=== PATIENT | male | born 1930 | race Caucasian/White ===

== ENCOUNTER 2016-05-10 10:48 | Observation (INO) | payer MEDICARE, OTHER ==
[2016-05-10] MEDS ORDERED: Aspirin Low Dose CHEW TAB* 81 MG PO ONE (11:08)
[2016-05-10] MEDS ORDERED: NS 0.9% 1000 ML* 1,000 ML IV ONE (11:59)
[2016-05-10 12:45] LABS: Hematocrit 40 % (42-52); Hemoglobin 12.8 g/dl (14.0-18.0); Mean Corpuscular HGB Conc 32 g/dl (31-36); Mean Corpuscular Hemoglobin 29 pg (27-31); Mean Corpuscular Volume 89 fL (80-94); Mean Platelet Volume 10 um3 (7.4-10.4); Red Cell Distribution Width 15 % (10.5-15); White Blood Count 8.4 10^3/ul (3.5-10.8)
[2016-05-10 13:06] LABS: Albumin 3.3 g/dL (3.2-5.2); BUN/Creatinine Ratio 40.2 (8-20); Calcium 8.6 mg/dL (8.6-10.3); EGFR African American 72.3 (>60); EGFR Non-African American 56.2 (>60); Globulin 2.5 g/dL (2-4); Potassium 4.5 mmol/L (3.5-5.0); Total Bilirubin 0.8 mg/dL (0.2-1.0); Total Protein 5.8 g/dL (6.4-8.9)
[2016-05-10 13:12] LABS: Troponin I 0.04 ng/mL (<0.04)
[2016-05-10] MEDS ORDERED: Nortriptyline CAP* 10 MG PO PRN (18:47)
[2016-05-10] MEDS ORDERED: Docusate CAP* 100 MG PO PRN (18:47)
[2016-05-10] MEDS ORDERED: Omeprazole CAP* 20 MG PO PRN (18:47)
[2016-05-10] MEDS ORDERED: Polyethylene Glycol 3350* 17 GM PACKET PO PRN (18:47)
--- NOTE | 2016-05-10 18:55 | CONS ---
CONSULTATION NOTE: DATE OF CONSULT: 05/10/16 SERVICE REQUESTING CONSULTATION: Emergency room, Dr. Carlos Alberto Zhu. REASON FOR CONSULTATION: Lower extremity swelling. SOURCE OF INFORMATION: History obtained from interview with the patient, review of past medical records, discussion with the patient's primary care provider, Dr. Mejia. PRIMARY CARE PROVIDER: Dr. Mejia. WHANAU SUPPORT WORKER: Dr. Flower. HISTORY OF PRESENT ILLNESS: This is an 85-year-old man, history of severe systolic heart failure, [place] [facility] [place] presenting with shortness of breath, found with newly depressed LVEF and EF estimated at 20% to 25%, underwent left heart catheterization without intervention, now notable severe aortic stenosis. He was seen yesterday by his primary care provider for lower extremity swelling, who increased his Lasix dose , recommended leg elevation as well as decreased water intake. Today, the patient indicated to his that he had had decreased urine output. Of note, the patient has lxqu-rx-hcukhgbp dementia, was unable to indicate at this point that he did that nor when the last time he urinated was. For this reason of decreased urination, he presented to the emergency room. He had a Schaffer catheter placed, although there was no documentation of how much urine resulted after Schaffer catheter was placed nor postvoid residual. He denies any recent change in shortness of breath from his chronic baseline shortness of breath. No decline in exercise tolerance. No cough. No orthopnea or PND, palpitations or chest pain. He has had no recent URI symptoms. indicates that he does adhere to a low-salt diet, but has dry mouth which he drinks a lot of water for. He has been recommended to drink ice chips; however, is not adherent. Additionally, he has been recommended to keep his legs up which he is similarly nonadherent to doing. Recently, he has had no notable symptoms, fevers, chills, or night sweats. When seen by this author, he had no complaints. PAST MEDICAL HISTORY: Includes: 1. Multivessel coronary artery bypass, 2013. Last cardiac catheterization in February without intervention. Known left bundle branch block. 2. Hdmw-ik-qmfrlmdk dementia. 3. Hypertension. 4. Carpal tunnel syndrome. HOME MEDICATIONS: Include: 1. Haldol 1 mg at bedtime as needed. 2. Vitamin B12 at 100 mg daily. 3. Vitamin C 500 mg daily. 4. Docusate 200 mg as needed. 5. Lasix 50 mg daily. 6. Morphine 15 mg at bedtime as needed. 7. MiraLAX 17 g daily as needed. 8. Multivitamin 1 tab daily. 9. Nexium 40 mg daily. 10. Cholecalciferol 1000 mg daily. 11. Aspirin 81 mg daily. 12. [place] 10/325 two tabs every 4 hours as needed. 13. Nortriptyline 30 mg at bedtime. 14. Metoprolol succinate XL 25 mg daily. 15. Lisinopril 2.5 mg daily. 16. Atorvastatin 10 mg in the evening. ALLERGIES: No known drug allergies. FAMILY HISTORY: No history of CAD or lung disease. SOCIAL HISTORY: Former smoker, quit in 1990. Has smoked 30 years, 2 to 3 packs per day. Lives with his . REVIEW OF SYSTEMS: Reportedly decreased urine output this morning for unknown duration. PHYSICAL EXAM: Vitals: When seen by this author, 122/88, heart rate 94, respiratory rate 16, 100% on room air, T-max in the emergency room is 98.2. Lying flat in bed, interactive, talks in full sentences, in no apparent distress. Oropharynx is clear. Moist mucous membranes. Sclerae are anicteric. Has elevated JVD. Has no cervical or supraclavicular lymphadenopathy. Has a regular rate and rhythm. No murmurs, rubs, or gallops. His lungs have decreased breath sounds in bases. Otherwise, clear throughout. His abdomen is soft, nontender, nondistended. Extremities are warm and well perfused. He has 1 + to 2+ lower extremity pitting edema to the knees. He is alert and oriented to name and location, but not to year. Conversant, sometimes combative, appeased by his . DIAGNOSTIC STUDIES/LAB DATA: Data reviewed. BUN 49, creatinine 1.22, lowest since checked on March 10. Troponin I of 0.04. BNP 3545. White blood cell count 8.4, hemoglobin 12.8. Data reviewed. EKG: [place], left bundle branch block. ASSESSMENT AND PLAN: This is an 85-year-old man presenting to the hospital with acute urinary retention. Urinalysis is still pending. However, I do not think its findings should warrant further hospital stay. Schaffer in place. He can return home. I have discussed with our care coordinators who are assisting in establishing assistance at home VNS for managing Schaffer catheter. He is to make no changes to his Lasix for care of his lower extremity edema. I discussed the care with Dr. Mejia who indicated adjusting his Lasix yesterday. I discussed further with the patient and his elevating legs at home and wrapping them, decreasing fluid intake. As far as his urinary retention, I do recommend starting Flomax 0.4 mg daily. Will follow up with Urology in 4 to 6 weeks. This again was discussed with Dr. Mejia and Dr. Zhu prior to his discharge. No other changes to his medications besides the addition of Flomax. The patient is clearly not in acute decompensated heart failure exacerbation. He is requiring no oxygen lying flat. No changes in his chronic shortness of breath. No other evidence of acute coronary syndrome or ischemic changes. I think largely his advancing dementia drove this hospital stay, with unknown duration of urinary retention and unknown amount of urinary retention after placement of Schaffer with inadequate documentation. The patient will be given a leg bag and Schaffer care teaching via ED staff prior to discharge. This was discussed with ED covering nurse, Virgen Sidhu. We additionally discussed wrapping legs if elevation was too difficult to perform at home. Results of this consultation was discussed with the patient, Dr. Zhu as well as Dr. Mejia. CC: Dr. Mejia; Dr. Flower * [id number]/[facility] #: [id number] [facility]
[2016-05-10] MEDS ORDERED: Furosemide IV* 10 MG/ML 2 ML VIAL (20 MG) IV SLOW PU ONE (19:14)
[2016-05-10 19:40] LABS: Urine Bacteria Absent (Absent); Urine Bilirubin Negative (Negative); Urine Glucose Negative (Negative); Urine Nitrite Negative (Negative)
[2016-05-10] MEDS: Heparin VIAL(*) 5000 UNITS/ML VIAL (FIVE THOUSAND) SUBCUT SCH (20:44)
--- NOTE | 2016-05-10 20:51 | HP ---
HISTORY AND PHYSICAL: ADDENDUM: DATE OF ADDENDUM: 05/10/16 The patient was initially seen in consultation by Dr. Louis Higuera in the emergency room. It was felt that the patient could be managed as an outpatient for the issues that he presented to the ER for. However, the patient's family ultimately demanded admission for management of CHF. I presented to the emergency room and discussed with the patient, his , and stepson about his current complaints. The patient presented to the emergency room with complaints of the inability to urinate. The patient himself currently is unable to remember this. A Schaffer catheter was placed in the ER. I had the opportunity to speak to the nurse that placed the Schaffer catheter. She states that 15 mL of urine immediately drained from the bladder, but no more. The patient also began to complain of swelling of his legs, scrotum, and penis. The patient again was seen in consultation by Dr. Louis Higuera and it was felt that his lower extremity edema could be managed as an outpatient. Additionally, it was felt that he likely had urinary retention; however, Dr. Higuera was unaware of the amount of urine that was emptied from the bladder at the placement of the Schaffer catheter. At this time, it appears the patient was not in urinary retention. At this point, I do feel that the patient could benefit from an observation stay. He has significant lower extremity edema. His scrotum and penis are swollen; however, not traumatically so. The patient is agreeable to being admitted to the hospital for further evaluation and management of his lower extremity edema. PLAN: 1. Systolic congestive heart failure - subacute decompensation. The patient's family gives me the history that his legs began to swell much worse approximately 2 weeks ago. This seems to be a subacute decompensation. The patient was seen by his primary care provider on the day prior to admission at which time, his Lasix dose was increased. At this point, I will hold his oral Lasix and place him on Lasix 40 mg IV x1 now followed by 40 mg IV b.i.d. I suspect with this, the patient will have dramatic response to the diuretic. His lower extremity swelling and scrotal swelling will need to be monitored. I have ordered daily weights as well. The patient will otherwise be maintained on his usual dose of lisinopril and metoprolol XL. The patient was seen as an outpatient by Dr. Flower in March 2016. At that time, he recommended getting a followup echocardiogram in early June 2016. I have ordered an echocardiogram if he remains in the hospital until Friday. However, again I feel that he just needs a jump start with IV Lasix and can manage as an outpatient. I doubt that the echocardiogram will be performed this hospitalization. 2. Inability to urinate. At the time the Schaffer catheter was placed, only 15 mL of urine was emptied from the bladder. It is clear that he was not in urinary retention. At this point, I will leave the Schaffer catheter in place as I am going to give him IV Lasix and it is likely safer to have the Schaffer in place then the patient up all night long urinating. I recommend that tomorrow morning the patient have the Schaffer catheter removed and a voiding trial attempted. 3. Coronary artery disease. The patient at this point has a very mildly elevated troponin of 0.04. I will get one more followup troponin to ensure that this is not sign of an acute coronary syndrome; however, his troponin has been in this range in February 2016. 4. Hypertension. At this point, the patient's blood pressure is stable in the 130s to 140s systolically. There were concerns of hypotension earlier this emergency room visit and he received 1 L of normal saline. It is unclear if these readings are accurate or false. For now, I am going to continue the patient on his usual doses of metoprolol and lisinopril. 5. Chronic pain. The patient will be maintained on his usual doses of nortriptyline and morphine. I will also add [place] 5/325 two tabs p.o. q.4 hours p.r.n. pain. This is a slightly reduced dose from home; however, at this point, we will just monitor to see his response to a lower dose of [place]. 6. Ujui-eq-cltbuxrs dementia. The patient has been somewhat agitated during the course of my evaluation. He has Haldol 1 mg at bedtime ordered as needed for agitation and this will be continued. 7. DVT prophylaxis. According to the Adult Thrombosis Prophylaxis Risk Factor Assessment Guide, the patient has a total risk factor score of 5 making him high risk. Heparin 5000 unit subcutaneous q.8 hours has been ordered for DVT prophylaxis. 8. Code status is full. The patient indicates that his Lisa is his healthcare proxy. TIME SPENT: 35 minutes were spent on the addendum history and physical. Please see the complete history and physical consultation report by Dr. Louis Higuera earlier on 05/10/16 for further HPI, past medical history, allergies, medications, family history, social history, review of systems and exam. [id number]/[facility] #: [id number] MTDD
[2016-05-10] MEDS: Haloperidol TAB* 1 MG PO PRN (21:41)
[2016-05-10] MEDS: HYDROcodone/ACETAMIN 5-325 MG* 1 TAB PO PRN (21:41)
[2016-05-11] MEDS: Morphine ORAL.SOLN 10 mg* 2 MG/ML UDC 5 ml PO PRN (01:07)
[2016-05-11] MEDS: Heparin VIAL(*) 5000 UNITS/ML VIAL (FIVE THOUSAND) SUBCUT SCH ×3 (05:35→19:59)
[2016-05-11 06:03] LABS: BUN/Creatinine Ratio 36.3 (8-20); Calcium 9.1 mg/dL (8.6-10.3); EGFR African American 70.9 (>60); EGFR Non-African American 55.1 (>60); Magnesium 2.1 mg/dL (1.9-2.7); Potassium 4.5 mmol/L (3.5-5.0)
[2016-05-11] MEDS ORDERED: Cyanocobalamin TAB* 500 MCG PO SCH (09:00)
[2016-05-11] MEDS: Cholecalciferol TAB* 1000 UNITS PO SCH (09:18)
[2016-05-11] MEDS: Furosemide IV* 10 MG/ML VIAL (40 MG) IV SLOW PU SCH ×2 (09:18→17:24)
[2016-05-11] MEDS: HYDROcodone/ACETAMIN 5-325 MG* 1 TAB PO PRN ×2 (09:19→20:15)
[2016-05-11] MEDS: Aspirin EC Low Dose* 81 MG TAB.EC PO SCH (09:19)
[2016-05-11] MEDS: Multivitamins/Minerals TAB PO SCH (09:19)
[2016-05-11] MEDS: Ascorbic Acid TAB* 500 MG PO SCH (09:22)
[2016-05-11] MEDS: Lisinopril TAB* 5 MG PO SCH (10:16)
[2016-05-11] MEDS: Metoprolol Succinate XL TAB* 25 MG PO SCH (10:16)
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
[2016-05-11] MEDS ORDERED: Nortriptyline CAP* 10 MG PO PRN ×2 (12:00→12:14)
[2016-05-11] MEDS ORDERED: Iodixanol* (CONTRAST) 320 MG/ML 100 ML SDV IV ONE (14:53)
[2016-05-11 15:14] LABS: FIO2 15
[2016-05-11 15:17] LABS: PCO2 Arterial 22 mmHg (35-45)
--- NOTE | 2016-05-11 15:19 | PN ---
Progress Note - Progress Note Note: Event Note: Patient had complaint of chest pain, relieved by applying oxygen. EKG and CT chest ordered. The patient became more dyspneic, O2 sat reading in 65% range. Patient sitting on edge of bed, verbal, confused (at baseline.) No cyanosis. BP 148/65 range, HR 90. Lungs: no rales/wheezes Heart; RRR, no murmur EKG: bigeminy, inferior T-wave inversions unchanged from admission. ABG and BMP/CBC/Trop ordered. Doubt O2sat accurate, Able to lie flat, will have CT chest. Discussed w/ daughter and . May need BiPAP. Patient is full code, confirmed w/ and daughter.
[2016-05-11 15:53] LABS: Hematocrit 45 % (42-52); Hemoglobin 14.5 g/dl (14.0-18.0); Mean Corpuscular HGB Conc 32 g/dl (31-36); Mean Corpuscular Hemoglobin 29 pg (27-31); Mean Corpuscular Volume 90 fL (80-94); Mean Platelet Volume 10 um3 (7.4-10.4); Red Blood Count 5.03 10^6/ul (4.0-5.4); Red Cell Distribution Width 15 % (10.5-15); White Blood Count 7.3 10^3/ul (3.5-10.8)
[2016-05-11 16:22] LABS: Troponin I 0.06 ng/mL (<0.04)
[2016-05-11 16:38] LABS: BUN/Creatinine Ratio 35.2 (8-20); Calcium 9.1 mg/dL (8.6-10.3); EGFR African American 60.6 (>60); EGFR Non-African American 47.2 (>60); Potassium 4.8 mmol/L (3.5-5.0)
[2016-05-11] MEDS: Donepezil TAB* 5 MG PO SCH (17:24)
[2016-05-11] MEDS: Atorvastatin* 10 MG TAB PO SCH (17:24)
[2016-05-11] MEDS: Tamsulosin CAP* 0.4 MG PO SCH (19:59)
[2016-05-11] MEDS: Haloperidol TAB* 1 MG PO PRN (19:59)
[2016-05-11] MEDS ORDERED: Heparin DRIP 25,000 UNITS(*) 25,000 UNITS/500 ML BAG IVPB SCH (23:00)
[2016-05-11] MEDS ORDERED: Heparin VIAL(*) 5000 UNITS/ML VIAL (FIVE THOUSAND) IV PRN (23:51)
[2016-05-12] MEDS: Morphine ORAL.SOLN 10 mg* 2 MG/ML UDC 5 ml PO PRN (00:22)
--- NOTE | 2016-05-12 01:33 | PN ---
Progress Note - Progress Note Note: Nursing was able to place an IV for his CTA chest with difficulty. Unfortunately , it infiltrated during the contrast injection and a new IV site was unable to be obtained. As the CTA chest was being done out of concern for PE, will initiate treatment w/ enoxaparin 80mg SQ BID until better IV access can be obtained and CTA performed.
[2016-05-12] MEDS: Enoxaparin(*) 80 MG/0.8 ML SYR SUBCUT SCH ×2 (02:55→14:05)
[2016-05-12] MEDS: Cholecalciferol TAB* 1000 UNITS PO SCH (07:49)
[2016-05-12] MEDS: Furosemide IV* 10 MG/ML VIAL (40 MG) IV SLOW PU SCH ×2 (07:49→13:54)
[2016-05-12] MEDS: HYDROcodone/ACETAMIN 5-325 MG* 1 TAB PO PRN ×3 (07:50→22:40)
[2016-05-12] MEDS: Aspirin EC Low Dose* 81 MG TAB.EC PO SCH (07:50)
[2016-05-12] MEDS: Metoprolol Succinate XL TAB* 25 MG PO SCH (07:51)
[2016-05-12] MEDS: Ascorbic Acid TAB* 500 MG PO SCH (07:51)
[2016-05-12] MEDS: Multivitamins/Minerals TAB PO SCH (07:51)
[2016-05-12] MEDS: Lisinopril TAB* 5 MG PO SCH (07:51)
[2016-05-12] MEDS: Furosemide TAB* 20 MG PO SCH (12:52)
--- NOTE | 2016-05-12 16:23 | ED ---
Donovan Nicholas Matthew, scribed for Carlos Alberto Zhu MD on 05/10/16 at 1221 . GI/ HPI - HPI Summary HPI Summary: An 85 y/o male presents to the ED unable to urinate since an unknown time. Associated symptoms include penile and scrotal swelling, pedal edema, and a distended abdomen. The patient denies dizziness, lightheadedness, and chest pain. The patient has a Hx of CHF, dementia, confusion, and HTN. Per the patient 's , he was seen by his PCP yesterday for pedal edema. Today, Maida wanted the patient to be seen in the ED. The patient did not take his Lasixs today. - History of Current Complaint Chief Complaint: EDUrogenitalProblems Time Seen by Provider: 05/10/16 11:08 Stated Complaint: UNABLE TO URINATE Hx Obtained From: Patient Onset/Duration: Atraumatic, Still Present Timing: Constant Current Severity: None Pain Intensity: 0 Additional Locations for Males: Penis, Scrotum Associated Signs and Symptoms: Positive: Other: - penile and scrotal swelling; distended abdomen; pedal edema. Negative: Dizziness, Lightheadedness, Chest Pain - Additional Pertinent History Primary Care Physician: [id number] - Allergy/Home Medications Allergies/Adverse Reactions: Allergies Allergy/AdvReac Type Severity Reaction Status Date / Time Spironolactone Allergy Unknown Verified 05/10/16 10:58 Reaction Details Home Medications: Home Medications Ascorbic Acid TAB* [Vitamin C TAB*] 500 mg PO DAILY 05/10/16 [History Confirmed 05/10/16] Cyanocobalamin TAB* [Vitamin B12 TAB*] 100 mcg PO DAILY 05/10/16 [History Confirmed 05/10/16] Docusate CAP* [Colace Cap*] 200 mg PO DAILY PRN 05/10/16 [History Confirmed ] Furosemide TAB* [Lasix TAB*] 60 mg PO QAM PRN 05/10/16 [History Confirmed ] Haloperidol TAB* [Haldol TAB*] 1 mg PO BEDTIME PRN 05/10/16 [History Confirmed 05/10/16] PMH/Surg Hx/FS Hx/Imm Hx Endocrine/Hematology History: Reports: Hx Anticoagulant Therapy - Aspirin, Other Endocrine/Hematological Disorders - BENIGN PROSTATE HYPERTROPHY, DISLIPIDEMIA Denies: Hx Bone Marrow Disease, Hx Diabetes, Hx Sickle Cell Disease, Hx Thyroid Disease, Hx Anemia Cardiovascular History: Reports: Hx Congestive Heart Failure, Hx Hypercholesterolemia, Hx Hypertension, Other Cardiovascular Problems/Disorders - SICK SINUS SYNDROME, BRADYCARDIA Denies: Hx Coronary Artery Disease, Hx Deep Vein Thrombosis, Hx Myocardial Infarction, Hx Pacemaker/ICD, Hx Peripheral Vascular Disease, Hx Rheumatic Fever Respiratory History: Reports: Hx Pneumonia Denies: Hx Asthma, Hx Chronic Obstructive Pulmonary Disease (COPD), Hx Lung Cancer, Hx Pulmonary Embolism, Hx Sleep Apnea GI History: Reports: Hx Gastroesophageal Reflux Disease, Hx Hiatal Hernia, Hx Jaundice - A YOUNG MAN, Hx Ulcer - X 1 IN THE PAST, Other GI Disorders - hiatal hernia, acid reflux Denies: Hx Cirrhosis, Hx Gall Bladder Disease, Hx Gastrointestinal Bleed, Hx Irritable Bowel, Hx Urosepsis History: Reports: Hx Kidney Infection - NOT RECENTLY, Other Problems/ Disorders - BILATERAL INGUINAL HERNIA Denies: Hx Dialysis, Hx Kidney Stones - DR. ZAMORANO RULED OUT, Hx Renal Disease Musculoskeletal History: Reports: Hx Back Problems, Hx Bursitis - ARMS, SHOULDERS, Hx Orthopedic Injury, Hx Tendonitis, Other Musculoskeletal History - LOWER BACK SURGERY X 8, CHRONIC PAIN SYNDROME, CARPAL TUNNEL, OSTEOARTHRITI Denies: Hx Arthritis, Hx Rheumatoid Arthritis, Hx Osteoporosis Sensory History: Reports: Hx Cataracts, Hx Contacts or Glasses - READING GLASSES , Hx Hearing Aid - BILATERAL EARS Opthamlomology History: Reports: Hx Cataracts, Hx Contacts or Glasses - READING GLASSES Neurological History: Reports: Other Neuro Impairments/Disorders - ALCOHOLISM Denies: Hx Dementia, Hx Headaches, Hx Migraine, Hx Nerve Disease, Hx Seizures , Hx Transient Ischemic Attacks (TIA) Psychiatric History: Reports: Hx Anxiety, Hx Depression Denies: Hx Panic Disorder, Hx Schizophrenia, Hx Bipolar Disorder - Cancer History Cancer Type, Location and Year: MELANOMA Hx Hematologic Symptoms: No Hx Chemotherapy: No Hx Radiation Therapy: No - Surgical History Surgery Procedure, Year, and Place: Ate age 30 fell off of a telephone pole and landed standing up; three disks. Has had 8 surgeries on his back 45+yrs ago . Very painful; takes at least 12 hydrocodone 10/325 per day routinely to deal. cardiac cath february 2016. with the pain. x4 CABG ONE MONTH AGO. CATARACTS REMOVED FROM BOTH EYES. melanoma face and back dx 1 month ago. SINUS SURGERY X 2. TRIPLE BYPASS DEC 2013 Hx Anesthesia Reactions: No - Immunization History Date of Tetanus Vaccine: UNSURE Date of Influenza Vaccine: NONE Infectious Disease History: No Infectious Disease History: Reports: Hx Shingles - many years ago Denies: Hx Hepatitis - ?, Hx Human Immunodeficiency Virus (HIV), Traveled Outside the [place] in Last 30 Days - Family History Known Family History: Positive: Cardiac Disease, Hypertension - Social History Alcohol Use: None Substance Use Type: Reports: None Substance Use Comment - Amount & Last Used: PRESCRIBED VICODIN AND MORPHINE Smoking Status (MU): Former Smoker Type: Cigarettes Amount Used/How Often: 3 PPD Length of Time of Smoking/Using Tobacco: 35 YEARS Have You Smoked in the Last Year: No Review of Systems Constitutional: Negative Negative: Fever, Chills Eyes: Negative Negative: Erythema ENT: Negative Negative: Sore Throat Cardiovascular: Negative Negative: Chest Pain Respiratory: Negative Negative: Shortness Of Breath Gastrointestinal: Other - distended abdomen Negative: Abdominal Pain, Vomiting, Nausea Genitourinary: Negative Negative: dysuria, hematuria Positive: Edema - pedal edema, penile, and scrotal swelling. Negative: Myalgia Skin: Negative Negative: Rash Neurological: Negative Negative: Headache Psychological: Normal All Other Systems Reviewed And Are Negative: Yes Physical Exam Triage Information Reviewed: Yes Vital Signs On Initial Exam: Initial Vitals Temp Pulse Resp BP Pulse Ox 97.5 F 43 18 110/58 100 05/10/16 10:50 05/10/16 10:50 05/10/16 10:50 05/10/16 10:50 05/10/16 10:50 Vital Signs Reviewed: Yes Appearance: Positive: No Pain Distress Skin: Positive: Warm, Dry Head/Face: Positive: Other - Normocephalic; Atraumatic Eyes: Positive: Conjunctiva Clear Dental: Negative: Cervical Lymphadenopathy Neck: Positive: Supple, No Lymphadenopathy Respiratory/Lung Sounds: Positive: Breath Sounds Present, Other - Normal Effort. Negative: Rales, Rhonchi, Stridor, Tracheal Deviation, Wheezes Cardiovascular: Positive: RRR, Other - Heart sounds normal; Intact distal pulses ; The pedal pulses are 2+ and symmetric. Radial pulses are 2+ and symmetric.. Negative: Murmur Abdomen Description: Positive: Nontender, Soft, Other: - NO rebound. Negative: Distended, Guarding Musculoskeletal: Positive: Other - peripheral edema extending from the feet to groin including the scrotum; Minimal ascites Neurological: Positive: Alert, Oriented to Person Place, Time Diagnostics - Vital Signs Vital Signs Temp Pulse Resp BP Pulse Ox 05/10/16 10:50 97.5 F 43 18 110/58 100 - Laboratory Result Diagrams: 05/11/16 15:43 05/11/16 15:43 Lab Statement: Any lab studies that have been ordered have been reviewed, and results considered in the medical decision making process. - EKG 11:07 Cardiac Rate: NL - 99 bpm EKG Rhythm: Sinus Rhythm EKG Interpretation: No STEMI 16:25 Cardiac Rate: NL - 89 bpm EKG Rhythm: Sinus Rhythm Ectopy: None EKG Interpretation: NO STEMI Re-Evaluation - Re-Evaluation First Eval Re-Evaluation Time: 18:46 Change: Worse Comment: The patient is tachypneic and per the he's been c/o SOB. GIGU Course/Dx - Course Assessment/Plan: An 85 y/o male presents to the ED unable to urinate. The patient has peripheral edema extending from the feet to groin including the scrotum with minimal ascites. Labs were reviewed and show elevate troponin of 0.04 and BNP of 3454. EKG shows NSR at 99 bpm. Discussed the case with Dr. Higuera who said there was no admitting Dx to keep the patient. The then informed me she was uncomfortable taking care of the patient at home. Discussed the wifes concern with Dr. Higuera who setup visiting nurses to see the patient for catheter care. Upon re-evaluation the patient was tachypneic with SOB. Dr. Mills was consulted and will admit the patient. - Diagnoses Provider Diagnoses: Peripheral edema - Physician Notifications Discussed Care Of Patient With: Dr. Higuera (Hospitalist) at 12:20 -- Notified of patient's history and will admit the patient into his services. Dr. Higuera ( Hospitalist) at 15:31 -- Relayed the 's concern wt Dr. Higuera who will setup visting nurses to see the patient at home for catheter care. Dr. Mills ( Hospitalist) at 18:34 -- Notified of patient's history and will consult on the patient. Discharge - Discharge Plan Condition: Stable Disposition: ADMITTED TO [facility] The documentation as recorded by the scribeDonovan Matthew accurately reflects the service I personally performed and the decisions made by me, Carlos Alberto Zhu MD.
[2016-05-12] MEDS: Atorvastatin* 10 MG TAB PO SCH (17:30)
[2016-05-12] MEDS: Donepezil TAB* 5 MG PO SCH (17:30)
[2016-05-12] MEDS: Tamsulosin CAP* 0.4 MG PO SCH (20:44)
[2016-05-13] MEDS: Enoxaparin(*) 80 MG/0.8 ML SYR SUBCUT SCH (01:52)
[2016-05-13] MEDS: HYDROcodone/ACETAMIN 5-325 MG* 1 TAB PO PRN ×3 (03:07→12:38)
--- NOTE | 2016-05-13 03:09 | DS ---
DISCHARGE SUMMARY: DATE OF ADMISSION: 05/10/16 DATE OF DISCHARGE: 05/12/16 PRIMARY DIAGNOSIS: Decompensation of chronic systolic heart failure. SECONDARY DIAGNOSES: 1. Alzheimer's type dementia. 2. Coronary artery disease with coronary artery bypass graft, 2013. 3. Left bundle-branch block. 4. Hypertension. 5. Carpal tunnel syndrome. 6. Chronic back pain. 7. Ischemic cardiomyopathy. 8. 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 MEDICATIONS ON DISCHARGE: 1. Vitamin C 500 mg p.o. daily. 2. Aspirin 81 mg p.o. daily. 3. Atorvastatin 10 mg p.o. q.h.s. 4. Vitamin D 1000 units p.o. daily. 5. Vitamin B12 at 100 mcg p.o. daily. 6. Colace 200 mg p.o. daily. 7. Aricept 5 mg p.o. q.p.m. 8. Nexium 20 mg p.o. daily. 9. Furosemide 60 mg p.o. q.a.m. 10. Haldol 1 mg p.o. q.h.s. p.r.n. agitation. 11. Hydrocodone/acetaminophen 10/325 one to two tabs p.o. q.4 hours MDD 6 p.r.n. pain. 12. Lisinopril 2.5 mg p.o. daily. 13. Metoprolol XL 25 mg p.o. daily. 14. Morphine IR 50 mg p.o. at bedtime p.r.n. back pain. 15. Multivitamin 1 tab p.o. daily. 16. Nortriptyline 10 mg p.o. at q.h.s. 17. MiraLax 17 g packet p.o. daily p.r.n. constipation. 18. Flomax 0.5 mg p.o. q.p.m. HOSPITAL COURSE: The patient was admitted through the emergency department with progressive edema and dyspnea. The patient was admitted also to this hospital in February, at that time had ejection fraction in the 20% to 25% range and had a repeat cardiac catheterization at that time without any intervention. He also has aortic stenosis. A repeat echo was planned in a few months, but this was not completed during the stay. The patient had also voiding complaints and had a Schaffer catheter placed in the emergency department. He was diuresed with intravenous Lasix and had approximately 1 L of that output per day for 2 days with improvement in his dyspnea and a peripheral edema. The patient is planning to go home with indwelling Schaffer catheter and have a voiding trial with urologist within the next 2 weeks. Pertinent lab results during the hospital stay include creatinine of 1.22 on admission, up to 1.42 on discharge. His sodium was 132 on admission and 135 on discharge. Troponin was 0.04, up to 0.06. BNP was 3545. The white count was normal, hematocrit was 45%, platelets are 140. Urinalysis showed leukocyte esterase, white cells and red cells, but urine culture showed no growth. On the second day of observation admission, the patient had an acute episode of hypoxia and shortness of breath. He was assessed by a rapid response team and had a blood gas that showed hyperventilation. CT angiogram of the chest was attempted to rule out pulmonary embolism, but he had a poor IV access and the IV failed during the test leading to a nondiagnostic exam. The patient's dyspnea resolved spontaneously essentially after application of additional supplemental oxygen. Oxygen was then titrated off and he does not require home oxygen. DISPOSITION: To home where he has a visiting nurse. There were extensive discussions about usp placement made with the family due to his dementia and difficulty with his taking care of him. For now, family will stay with him and they are applying for Medicaid so that he could move to a usp potentially as an outpatient. For heart failure and aortic stenosis, the patient should follow up with Dr. Flower and have repeat echo as an outpatient. For his heart failure he should be doing daily weights and a low salt diet. He has been instructed to call Dr. Flower if his weight goes up 2 pounds above his baseline on his home scale. ACTIVITY: Should be as tolerated. The patient should see Urology for followup within 2 weeks. A referral has been made to Dr. Lowe. CC: Dr. Mejia; Dr. Flower; Dr. Lowe * [id number]/[facility] #: [id number] [facility]
[2016-05-13 08:53] VITALS: BP 111/61
[2016-05-13] MEDS: Multivitamins/Minerals TAB PO SCH (08:59)
[2016-05-13] MEDS: Lisinopril TAB* 5 MG PO SCH (09:00)
[2016-05-13] MEDS: Aspirin EC Low Dose* 81 MG TAB.EC PO SCH (09:00)
[2016-05-13] MEDS: Cholecalciferol TAB* 1000 UNITS PO SCH (09:00)
[2016-05-13] MEDS: Metoprolol Succinate XL TAB* 25 MG PO SCH (09:00)
[2016-05-13] MEDS: Furosemide TAB* 20 MG PO SCH (09:00)
[2016-05-13] MEDS: Ascorbic Acid TAB* 500 MG PO SCH (09:01)
--- NOTE | 2016-05-13 10:34 | PN ---
Subjective Date of Service: 05/13/16 Interval History: Patient seen and examined at bedside. He is OOB to chair. He is sleeping. He arouses easily and states, "I'm wiped out." Staff reports he has been up throughout the night. Patient denies CP, SOB, generalized pain. No acute needs or concerns. Patient was discharged to home yesterday, but family refused to take patient home. CM/SW aware and following. Family History: Unchanged from Admission Social History: Findings - as above Past Medical History: Unchanged from Admission Objective Active Medications: Hydrocodone Bitart/Acetaminophen ([place] 5-325 Tab*) 2 tab PO Q4H PRN PRN Reason: PAIN Last Admin: 05/13/16 07:14 Dose: 2 tab Ascorbic Acid (Vitamin C Tab*) 500 mg PO DAILY [facility] Last Admin: 05/13/16 09:01 Dose: 500 mg Aspirin (Aspirin Ec Low Dose*) 81 mg PO DAILY [facility] Last Admin: 05/13/16 09:00 Dose: 81 mg Atorvastatin Calcium (Lipitor*) 10 mg PO QPM [facility] Last Admin: 05/12/16 17:30 Dose: 10 mg Cholecalciferol (Vitamin D Tab*) 1,000 units PO DAILY [facility] Last Admin: 05/13/16 09:00 Dose: 1,000 units Docusate Sodium (Colace Cap*) 200 mg PO DAILY PRN PRN Reason: CONSTIPATION Last Admin: 05/12/16 07:49 Dose: 200 mg Donepezil HCl (Aricept Tab*) 5 mg PO QPM [facility] Last Admin: 05/12/16 17:30 Dose: 5 mg Enoxaparin Sodium (Lovenox(*)) 80 mg SUBCUT Q12H [facility] Last Admin: 05/13/16 01:52 Dose: 80 mg Furosemide (Lasix Tab*) 60 mg PO QAM [facility] Last Admin: 05/13/16 09:00 Dose: 60 mg Haloperidol (Haldol Tab*) 1 mg PO BEDTIME PRN PRN Reason: AGITATION Last Admin: 05/11/16 19:59 Dose: 1 mg Lisinopril (Prinivil Tab*) 2.5 mg PO DAILY [facility] Last Admin: 05/13/16 09:00 Dose: 2.5 mg Metoprolol Succinate (Toprol Xl Tab*) 25 mg PO DAILY [facility] Last Admin: 05/13/16 09:00 Dose: 25 mg Morphine Sulfate (Morphine Oral.Soln 10 Mg*) 15 mg PO BEDTIME PRN PRN Reason: PAIN Last Admin: 05/12/16 00:22 Dose: 15 mg Multivitamins/Minerals (Theragran/Minerals Tab*) 1 tab PO DAILY [facility] Last Admin: 05/13/16 08:59 Dose: 1 tab Nortriptyline HCl (Pamelor Cap*) 10 mg PO BEDTIME PRN PRN Reason: PAIN Omeprazole (Prilosec Cap*) 20 mg PO DAILY PRN; Protocol PRN Reason: INDIGESTION Polyethylene Glycol/Electrolytes (Miralax*) 17 gm PO DAILY PRN PRN Reason: CONSTIPATION Last Admin: 05/12/16 07:49 Dose: 17 gm Tamsulosin HCl (Flomax Cap*) 0.4 mg PO BEDTIME [facility] Last Admin: 05/12/16 20:44 Dose: 0.4 mg Vital Signs 05/12/16 05/12/16 05/12/16 12:05 17:34 19:34 Temperature 97.2 F Pulse Rate 40 Respiratory 16 20 18 Rate Blood Pressure 109/53 (mmHg) O2 Sat by Pulse 100 Oximetry 05/12/16 05/12/16 05/12/16 22:40 23:18 23:41 Temperature 97.3 F Pulse Rate 117 110 Respiratory 18 18 20 Rate Blood Pressure 111/58 121/64 (mmHg) O2 Sat by Pulse 89 91 Oximetry 05/13/16 05/13/16 05/13/16 00:40 03:07 05:07 Temperature Pulse Rate Respiratory 18 18 18 Rate Blood Pressure (mmHg) O2 Sat by Pulse Oximetry 05/13/16 05/13/16 05/13/16 07:14 07:40 09:05 Temperature 97.6 F Pulse Rate 37 58 Respiratory 14 16 Rate Blood Pressure 111/61 (mmHg) O2 Sat by Pulse 100 Oximetry 05/13/16 05/13/16 09:14 10:26 Temperature Pulse Rate 52 Respiratory 14 Rate Blood Pressure (mmHg) O2 Sat by Pulse Oximetry Oxygen Devices in Use Now: None Appearance: Elderly male patient, OOB to chair, in NAD Eyes: PERRLA Ears/Nose/Mouth/Throat: Clear Oropharnyx, Mucous Membranes Moist Neck: NL Appearance and Movements; NL JVP Respiratory: Symmetrical Chest Expansion and Respiratory Effort, Clear to Auscultation Cardiovascular: NL Sounds; No Murmurs; No JVD, RRR Abdominal: NL Sounds; No Tenderness; No Distention Neurological: - - oriented to self, cooperative with care Result Diagrams: 05/11/16 15:43 05/11/16 15:43 Additional Lab and Data: I/O: has diuresed 1L Microbiology and Other Data: Microbiology 05/10/16 19:27 Urine Culture - Final Urine No Growth (<1,000 CFU/mL) Assess/Plan/Problems-Billing Assessment: 85 year old admitted with exacerbation of systolic CHF, urinary outlet obstruction s/p diuresis; discharged to home yesterday but family refused to take him home. - Patient Problems (1) Heart failure, systolic, with acute decompensation Code(s): I50.23 - ACUTE ON CHRONIC SYSTOLIC (CONGESTIVE) HEART FAILURE Comment : Responded well to diuretics and supportive care, electrolytes and kidneys stable. With aortic stenosis Plan for outpatient follow-up with Dr. Flower for further evaluation and repeat echocardiogram. Plan discussed with family today and over the weekend by way of Dr. Pat. (2) Bladder outlet obstruction Code(s): N32.0 - BLADDER-NECK OBSTRUCTION Comment: Likely has outlet obstruction due to BPH and penile edema. Now relieved by watkins, will need help from VNS to manage watkins. Referral sent and pending. Continue Flomax, may be able to remove watkins in 2-3 wks if edema improved. Nursing to provide teaching to family for assistance in managing catheter. Outpatient urology follow-up. (3) Alzheimer's dementia, late onset, with behavioral disturbance Status: Acute Priority: Medium Code(s): G30.1 - ALZHEIMER'S DISEASE WITH LATE ONSET; F02.81 - DEMENTIA IN OTH DISEASES CLASSD ELSWHR W BEHAVIORAL DISTURB SNOMED Code(s): 172745239 Comment: Dr. Pat discussed unsafe home situation with daughter and with Sheri of case management. Refusal to take patient home on Friday by patient's step-daughter Discussed again today with daughter; family declines to appeal discharge and does not want [facility] admit at this time. Continue Aricept; family with home services referral. Family to continue pursuit of SNF placement. (4) DVT prophylaxis Code(s): EWU1158 - Comment: SQ enoxaparin Status and Disposition: OBV admit. D/c to home.
--- NOTE | 2016-05-14 13:44 | DS ---
DISCHARGE SUMMARY: DATE OF ADMISSION: 05/10/16 DATE OF DISCHARGE: 05/13/16 PROVIDER: Carmen Tobar NP ATTENDING PHYSICIAN: Dr. Charles Escoto *(as dictated by Carmen Tobar NP). PRIMARY CARE PHYSICIAN: Dr. Mejia. PRIMARY RISK ASSESSMENT CONSULTANT: Dr. Flower. NEUROLOGIST: Dr. Lowe. This is an addendum to the discharge summary dictated by Dr. Dain Pat on 05/12/16. HOSPITAL COURSE: Mr. Denney is an 85-year-old gentleman with a past medical history significant for chronic systolic heart failure, Alzheimer's type dementia, coronary artery disease, status post coronary artery bypass graft in 2013, left bundle branch block, hypertension, carpal tunnel syndrome, chronic back pain, ischemic cardiomyopathy and urinary retention due to bladder outlet obstruction. For full details, please refer to the discharge summary provided by Dr. Pat. Mr. Denney was initially admitted for subacute to acute decompensation of chronic systolic heart failure as evidenced by progressive edema and dyspnea. The patient also has known aortic stenosis. There was also concern for voiding complaints and the patient did have a Schaffer catheter placed in the emergency department for urinary retention. During his admission, he was diuresed with Lasix and was stabilized with medical care. At the time of discharge on Friday , the patient had been titrated off of oxygen and had no further complaints of dyspnea. He had a negative urine culture. In terms of his heart failure and aortic stenosis, a plan was made with the family to have the patient follow up with his primary keg filler, Dr. Flower, to have a repeat echo as an outpatient. However, on Friday, when the patient was discharged by Dr. Pat, the family refused to take the patient home citing inability to take care of the patient due to his advanced dementia. Today, on 05/13/16, a accounts payable representative from the family met with Case Management and myself to discuss the patient's condition. The patient remains stable today, endorses no acute complaints. In fact, it was noted that his mental status was better than it had been over the weekend. He has demonstrated ability to lie flat and to sit up in a chair and sleep. He has no acute concerns. His Schaffer catheter is draining appropriately. Family was offered the opportunity to appeal his discharge by calling the insurance; however, they were notified that if the appeal was denied, that they would be responsible for the cost incurred for each day of the patient's stay from the time of discharge. The family decided to have the patient come home with them and that they would pursue further placement options from the outpatient setting. The patient has a visiting nurse services arranged to start when he returns home to help with Schaffer catheter care and other acute needs. Again the patient is to follow up with his keg filler and the family has been instructed to perform daily weights and to maintain the patient on a low salt diet. They have also been instructed to call Dr. Flower if his weight goes up 2 pounds above his baseline on his home scale. The patient should also be in followup with Dr. Lowe of Urology within the next 2 weeks. This has also been conveyed to the family. They will call for an appointment. Mr. Denney will be discharged to home today on 05/13/16 with his daughter. The plan for outpatient followup was conveyed to the family and they have verbalized understanding. CONCERNS AT DISCHARGE: No acute concerns. Discharged to home on 05/13/16. DIET: Low salt diet. ACTIVITY: As tolerated. CONDITION: Stable. DISPOSITION: To home with visiting nurse services. TIME SPENT: Time spent on this discharge was approximately 35 minutes. Again, this is only a brief summary of the patient's hospital course of stay. For full details, please refer to the full medical record. If you have any further questions or need further assistance, please feel free to contact me at . CARMEN TOBAR NP CC: Dr. Mejia; Dr. Flower; Dr. Lowe [id number]/[facility] #: [id number] MTDFrannie
== END 2016-05-13 14:45 | disposition home or self-care (01) ==
LOC: ED 10:48 → MEDTELE 18:45
PROVIDERS: ADMIT Hospitalist; ATTEND Internal Medicine
DX: I50.20 Unspecified systolic (congestive) heart failure (principal); R33.9 Retention of urine, unspecified; I25.10 Atherosclerotic heart disease of native coronary artery without angina pectoris; I10 Essential (primary) hypertension; G89.29 Other chronic pain; F03.90 Unspecified dementia, unspecified severity, without behavioral disturbance, psychotic disturbance, mood disturbance, and anxiety; Z95.1 Presence of aortocoronary bypass graft
CPT/HCPCS: 36415; 36600; 71275; 80048; 80053; 81003; 81015; 82803; 83605; 83735; 83880; 84484; 85025; 87086; 93005; 96365; 96366; 96375; 99284; A9270-GY; G0378; J1644; J1650; J1940

== ENCOUNTER 2016-05-15 15:29 | Inpatient (IN) | payer MEDICARE ==
[2016-05-15] MEDS ORDERED: Docusate CAP* 100 MG PO PRN (19:31)
[2016-05-15] MEDS ORDERED: Omeprazole CAP* 20 MG PO PRN (19:31)
[2016-05-15] MEDS ORDERED: Morphine ORAL.SOLN 10 mg* 2 MG/ML UDC 5 ml PO PRN (19:31)
[2016-05-15] MEDS ORDERED: Polyethylene Glycol 3350* 17 GM PACKET PO PRN (19:31)
[2016-05-15] MEDS: Haloperidol TAB* 1 MG PO PRN (20:10)
[2016-05-15] MEDS: Furosemide TAB* 20 MG PO SCH (20:10)
[2016-05-15] MEDS: Tamsulosin CAP* 0.4 MG PO SCH (20:10)
[2016-05-15] MEDS: Donepezil TAB* 5 MG PO SCH (20:10)
[2016-05-15] MEDS: HYDROcodone/ACETAMIN 5-325 MG* 1 TAB PO PRN (20:30)
--- NOTE | 2016-05-15 21:18 | ED ---
Uriel Nicholas Adam, scribed for Frakn Meraz MD on 05/15/16 at 1602 . Complex/Multi-Sys Presentation - HPI Summary HPI Summary: Pt is an 85 year old male brought in by his daughter because she states that he is a "danger to himself and to others". She states that he was trying to pull out his own catheter and can not be trusted to be alone. She also states that she hid all of the knives and scissors in the house because she was concerned about threatening behavior. The pt's daughter would like the pt to be admitted. Upon being interviewed the pt himself is agitated and confused about where he is and what time of year it is. PMHx includes CHF, HTN, HLD, CVA, CABGx3, and melanoma. - History Of Current Complaint Time Seen by Provider: 05/15/16 15:51 Hx Obtained From: Patient, Family/Hop Grower - Daughter Onset/Duration: Gradual Onset, Lasting Days, Still Present Timing: Constant Severity Currently: Moderate Severity Initially: Moderate Associated Signs And Symptoms: Positive: Other - Patient is a "danger to himself and to others" (per daughter) - Allergies/Home Medications Allergies/Adverse Reactions: Allergies Allergy/AdvReac Type Severity Reaction Status Date / Time Spironolactone Allergy Unknown Verified 05/10/16 10:58 Reaction Details PMH/Surg Hx/FS Hx/Imm Hx Endocrine/Hematology History: Reports: Hx Anticoagulant Therapy - Aspirin, Other Endocrine/Hematological Disorders - BENIGN PROSTATE HYPERTROPHY, DISLIPIDEMIA Denies: Hx Bone Marrow Disease, Hx Diabetes, Hx Sickle Cell Disease, Hx Thyroid Disease, Hx Anemia Cardiovascular History: Reports: Hx Congestive Heart Failure, Hx Hypercholesterolemia, Hx Hypertension, Other Cardiovascular Problems/Disorders - SICK SINUS SYNDROME, BRADYCARDIA Denies: Hx Coronary Artery Disease, Hx Deep Vein Thrombosis, Hx Myocardial Infarction, Hx Pacemaker/ICD, Hx Peripheral Vascular Disease, Hx Rheumatic Fever Respiratory History: Reports: Hx Pneumonia Denies: Hx Asthma, Hx Chronic Obstructive Pulmonary Disease (COPD), Hx Lung Cancer, Hx Pulmonary Embolism, Hx Sleep Apnea GI History: Reports: Hx Gastroesophageal Reflux Disease, Hx Hiatal Hernia, Hx Jaundice - A YOUNG MAN, Hx Ulcer - X 1 IN THE PAST, Other GI Disorders - hiatal hernia, acid reflux Denies: Hx Cirrhosis, Hx Gall Bladder Disease, Hx Gastrointestinal Bleed, Hx Irritable Bowel, Hx Urosepsis History: Reports: Hx Kidney Infection - NOT RECENTLY, Other Problems/ Disorders - BILATERAL INGUINAL HERNIA Denies: Hx Dialysis, Hx Kidney Stones - DR. ZAMORANO RULED OUT, Hx Renal Disease Musculoskeletal History: Reports: Hx Back Problems, Hx Bursitis - ARMS, SHOULDERS, Hx Orthopedic Injury, Hx Tendonitis, Other Musculoskeletal History - LOWER BACK SURGERY X 8, CHRONIC PAIN SYNDROME, CARPAL TUNNEL, OSTEOARTHRITI Denies: Hx Arthritis, Hx Rheumatoid Arthritis, Hx Osteoporosis Sensory History: Reports: Hx Cataracts, Hx Contacts or Glasses - READING GLASSES , Hx Hearing Aid - BILATERAL EARS Opthamlomology History: Reports: Hx Cataracts, Hx Contacts or Glasses - READING GLASSES Neurological History: Reports: Other Neuro Impairments/Disorders - ALCOHOLISM Denies: Hx Dementia, Hx Headaches, Hx Migraine, Hx Nerve Disease, Hx Seizures , Hx Transient Ischemic Attacks (TIA) Psychiatric History: Reports: Hx Anxiety, Hx Depression Denies: Hx Panic Disorder, Hx Schizophrenia, Hx Bipolar Disorder - Cancer History Cancer Type, Location and Year: MELANOMA Hx Hematologic Symptoms: No Hx Chemotherapy: No Hx Radiation Therapy: No - Surgical History Surgery Procedure, Year, and Place: Ate age 30 fell off of a telephone pole and landed standing up; three disks. Has had 8 surgeries on his back 45+yrs ago . Very painful; takes at least 12 hydrocodone 10/325 per day routinely to deal. cardiac cath february 2016. with the pain. x4 CABG ONE MONTH AGO. CATARACTS REMOVED FROM BOTH EYES. melanoma face and back dx 1 month ago. SINUS SURGERY X 2. TRIPLE BYPASS DEC 2013 Hx Anesthesia Reactions: No - Immunization History Date of Tetanus Vaccine: UNSURE Date of Influenza Vaccine: NONE Infectious Disease History: Reports: Hx Shingles - many years ago Denies: Hx Hepatitis - ?, Hx Human Immunodeficiency Virus (HIV) - Family History Known Family History: Positive: Cardiac Disease, Hypertension - Social History Occupation: Retired Lives: With Family - Alcohol Use: None Hx Substance Use: No Substance Use Type: Reports: None Substance Use Comment - Amount & Last Used: PRESCRIBED VICODIN AND MORPHINE Hx Tobacco Use: Yes Smoking Status (MU): Former Smoker Type: Cigarettes Amount Used/How Often: 3 PPD Length of Time of Smoking/Using Tobacco: 35 YEARS Have You Smoked in the Last Year: No Review of Systems Skin: Negative Positive: Other - Agitated All Other Systems Reviewed And Are Negative: Yes Physical Exam - Summary Physical Exam Summary: Vital signs: reviewed General: Patient is comfortable lying in stretcher with no signs of distress HEENT: within normal limits Lungs: CTA B/L CVS: S1 & S2 present. No murmurs appreciated. ABDOMEN: Soft, non-tender. No signs of distention. No rebound no guarding, and no masses palpated. Bowel sounds are normal. EXTREMITIES: FROM in all major joints, no edema, no cyanosis or clubbing. NEURO: Alert and oriented x 1. No acute neurological deficits. Speech is normal and follows commands. SKIN: Dry and warm Triage Information Reviewed: Yes Vital Signs On Initial Exam: Initial Vitals Temp Pulse Resp BP Pulse Ox 97.8 F 57 18 114/67 96 05/15/16 16:40 05/15/16 16:40 05/15/16 16:40 05/15/16 16:40 05/15/16 16:40 Vital Signs Reviewed: Yes Diagnostics - Vital Signs Vital Signs Temp Pulse Resp BP Pulse Ox 05/15/16 16:58 97.8 F 47 21 114/67 99 05/15/16 16:40 97.8 F 57 18 114/67 96 - Laboratory Lab Statement: Any lab studies that have been ordered have been reviewed, and results considered in the medical decision making process. Complex Multi-Symp Course/Dx Assessment/Plan: Pt is an 85 year old male brought in by his daughter because she states that he is a "danger to himself and to others". She states that he was trying to pull out his own catheter and can not be trusted to be alone. She also states that she hid all of the knives and scissors in the house because she was concerned about threatening behavior. The pt's daughter would like the pt to be admitted. Upon being interviewed the pt himself is agitated and confused about where he is and what time of year it is. PMHx includes CHF, HTN, HLD, CVA, CABGx3, and melanoma. I discussed the case with psychiatric social worker. She recommends admission for danger to himself. I spoke with Dr. Weiner who agreed to admit patient to her services for further w/u and management. I did order blood work for the patient and now he will be admitted to the floor. Blood work will be f/u by Dr. Bobo. He is alert and oriented x1 and as per her daughter it is his base line. He is hemodynamically stable. He continues to be asymptomatic. - Diagnoses Differential Diagnoses/HQI/PQRI: Other - dementia, Provider Diagnoses: Dementia, Aggressive behavior, unable to care for himself Discharge - Discharge Plan Condition: Guarded Disposition: ADMITTED TO [facility] The documentation as recorded by the Uriel ashraf Adam accurately reflects the service I personally performed and the decisions made by , Frank Meraz MD.
[2016-05-15] MEDS: Nortriptyline CAP* 10 MG PO PRN (22:01)
[2016-05-15] MEDS: Heparin VIAL(*) 5000 UNITS/ML VIAL (FIVE THOUSAND) SUBCUT SCH (22:01)
[2016-05-16] MEDS: HYDROcodone/ACETAMIN 5-325 MG* 1 TAB PO PRN ×4 (00:46→21:49)
[2016-05-16 00:56] LABS: Hematocrit 41 % (42-52); Hemoglobin 13.3 g/dl (14.0-18.0); Mean Corpuscular HGB Conc 32 g/dl (31-36); Mean Corpuscular Hemoglobin 29 pg (27-31); Mean Corpuscular Volume 89 fL (80-94); Red Blood Count 4.67 10^6/ul (4.0-5.4); Red Cell Distribution Width 15 % (10.5-15); White Blood Count 8.7 10^3/ul (3.5-10.8)
[2016-05-16 00:57] LABS: Add Diff/Slide Review? Slide Review Added; Comments Flag Yes
[2016-05-16 01:07] LABS: ALT 44 U/L (7-52); Albumin 3.7 g/dL (3.2-5.2); Alkaline Phosphatase 240 U/L (34-104); BUN/Creatinine Ratio 38.1 (8-20); Blood Urea Nitrogen 51 mg/dL (6-24); CO2 Carbon Dioxide 23 mmol/L (22-32); Calcium 8.8 mg/dL (8.6-10.3); Chloride 96 mmol/L (101-111); EGFR African American 64.8 (>60); EGFR Non-African American 50.4 (>60); Globulin 2.6 g/dL (2-4); Glucose 114 mg/dL (70-100); Sodium 127 mmol/L (133-145); Total Protein 6.3 g/dL (6.4-8.9)
--- NOTE | 2016-05-16 01:17 | HP ---
HISTORY AND PHYSICAL: DATE OF ADMISSION: 05/15/16 PCP: Dr. Mejia. STATUS: Care Home. CHIEF COMPLAINT: Family is unable to take care of the patient at home. HISTORY OF PRESENT ILLNESS: Mr. Denney is an 85-year-old man with a past medical history of CAD, status post CABG, dementia, hypertension, ischemic cardiomyopathy and urinary retention, status post Schaffer placement, who presents to the hospital after recent discharge as apparently the family is unable to take care of the patient at home due to his outbursts and dangerous behaviors. The patient was recently admitted to the hospital for CHF exacerbation. He was discharged on 05/13/16. After the patient was offered a halfway admission at that time, the patient's daughter decided to take the patient home instead. There is no family currently at the bedside to confirm, but it sounds like the patient has been having some outbursts and dangerous behavior at home that the family feels that they are unable to manage. The patient currently has no complaints. He seems pleasantly confused. 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 He is unable to tell me why he is here in the hospital. PAST MEDICAL HISTORY: Multivessel coronary artery bypass in 2014, left bundle- branch block, [id number] dementia, hypertension, carpal tunnel syndrome. HOME MEDICATIONS: 1. Metoprolol succinate 25 mg by mouth daily. 2. Lisinopril 2.5 mg by mouth daily. 3. [place] 10/325 two tablets every 8 hours as needed for pain. 4. Haldol 1 mg by mouth at bedtime as needed for sleep. 5. Lasix 60 mg by mouth daily as needed for swelling. 6. Nexium 40 mg by mouth daily. 7. Donepezil 5 mg by mouth nightly. 8. Colace 200 mg by mouth daily as needed for constipation. 9. Vitamin B12 of 100 mcg by mouth daily. 10. Vitamin D3 of 1000 units by mouth daily. 11. Atorvastatin 10 mg by mouth nightly. 12. Aspirin 81 mg by mouth daily. 13. Vitamin C 500 mg by mouth daily. 14. Flomax 0.4 mg by mouth at bedtime. 15. MiraLAX 17 g by mouth daily as needed for constipation. 16. Nortriptyline 10 mg by mouth at bedtime as needed for pain. 17. Multivitamin 1 tablet by mouth daily. 18. Morphine 15 mg by mouth at bedtime as needed for pain. ALLERGIES: The patient has no known drug allergies. FAMILY HISTORY: No history of CAD or lung disease. SOCIAL HISTORY: The patient is a former smoker, quit in 1990. Lives at home with his . REVIEW OF SYSTEMS: Unable to obtain due to the patient's poor memory. PHYSICAL EXAMINATION GENERAL: The patient is an elderly man, lying in bed, in no apparent distress. VITAL SIGNS: On admission: Temperature 97.8, heart rate 57, respiratory rate 18, O2 saturation 96% on room air, blood pressure 114/67. HEENT: Normocephalic, atraumatic. Pupils are equal, round, and reactive to light and accommodation. Anicteric sclerae. Moist mucous membranes. LUNGS: Clear to auscultation bilaterally. No wheezes, rales, or rhonchi. CARDIOVASCULAR: Regular rate and rhythm. S1, S2 present. No murmurs, gallops , or rubs. ABDOMEN: Soft, nontender, nondistended. Bowel sounds positive. EXTREMITIES: The patient with mild pitting edema in bilateral lower extremities. NEUROLOGIC: The patient is alert, oriented to self, year, thought he was in [facility], but quickly was able to provide [facility], cannot tell me the month or day of the week. No focal neurological deficits. ASSESSMENT AND PLAN: An 85-year-old male with past medical history of ischemic cardiomyopathy, recent admission for systolic congestive heart failure exacerbation, and history of dementia, presents to the hospital after the family is no longer able to take care of him at home. The patient will be admitted under halfway status. Family will be meeting with Social Work and caser shoe parts tomorrow to try to figure out the best plan for the patient. TIME SPENT: Total time spent on this admission was 35 minutes. This is a summary of the hospitalization, please see the full medical record for further details. CC: Dr. Mejia* [id number]/[facility] #: [id number] MTDD
[2016-05-16 01:28] LABS: Urine Bacteria Absent (Absent); Urine Bilirubin Negative (Negative); Urine Glucose Negative (Negative); Urine Nitrite Negative (Negative)
[2016-05-16] MEDS: Heparin VIAL(*) 5000 UNITS/ML VIAL (FIVE THOUSAND) SUBCUT SCH ×3 (06:23→23:19)
[2016-05-16] MEDS: Furosemide TAB* 20 MG PO SCH (11:21)
[2016-05-16] MEDS: Lisinopril TAB* 5 MG PO SCH (11:23)
[2016-05-16] MEDS: Aspirin EC Low Dose* 81 MG TAB.EC PO SCH (11:23)
[2016-05-16] MEDS: Metoprolol Succinate XL TAB* 25 MG PO SCH (11:26)
[2016-05-16] MEDS: CYANOCOBALAMIN 100 MCG PO SCH (11:26)
[2016-05-16] MEDS: Cholecalciferol TAB* 1000 UNITS PO SCH (11:26)
[2016-05-16] MEDS: Multivitamins/Minerals TAB PO SCH (11:26)
[2016-05-16] MEDS: Ascorbic Acid TAB* 500 MG PO SCH (11:26)
--- NOTE | 2016-05-16 14:49 | PN ---
Subjective Date of Service: 05/16/16 Interval History: Patient seen this morning. A bit fatigued and confused but woke up easily. Was able to take PO medications. Says his feet are bothering him, they feel tense. Family History: Unchanged from Admission Social History: Unchanged from Admission Past Medical History: Unchanged from Admission Objective Active Medications: Hydrocodone Bitart/Acetaminophen ([place] 5-325 Tab*) 1 tab PO Q4H [place] Ascorbic Acid (Vitamin C Tab*) 500 mg PO DAILY [facility] Aspirin (Aspirin Ec Low Dose*) 81 mg PO DAILY [facility] Atorvastatin Calcium (Lipitor*) 10 mg PO QPM [facility] Cholecalciferol (Vitamin D Tab*) 1,000 units PO DAILY [facility] Docusate Sodium (Colace Cap*) 200 mg PO DAILY PRN Donepezil HCl (Aricept Tab*) 5 mg PO QPM [facility] Furosemide (Lasix Tab*) 60 mg PO QAM [facility] Haloperidol (Haldol Tab*) 1 mg PO BEDTIME PRN Heparin Sodium (Porcine) (Heparin Vial(*)) 5,000 units SUBCUT Q8HR [facility] Lisinopril (Prinivil Tab*) 2.5 mg PO DAILY [facility] Metoprolol Succinate (Toprol Xl Tab*) 25 mg PO DAILY [facility] Morphine Sulfate (Morphine Oral.Soln 10 Mg*) 15 mg PO BEDTIME PRN Multivitamins/Minerals (Theragran/Minerals Tab*) 1 tab PO DAILY [facility] Non Formulary Med* Cyanocobalamin 100mcg 100 admin PO DAILY [facility] Nortriptyline HCl (Pamelor Cap*) 10 mg PO BEDTIME PRN Omeprazole (Prilosec Cap*) 20 mg PO DAILY PRN; Protocol Polyethylene Glycol/Electrolytes (Miralax*) 17 gm PO DAILY PRN Tamsulosin HCl (Flomax Cap*) 0.4 mg PO BEDTIME [facility] Vital Signs 05/15/16 05/15/16 05/15/16 19:27 19:54 20:00 Temperature 97.6 F 97.5 F Pulse Rate 53 78 Respiratory 22 18 18 Rate Blood Pressure 119/67 99/72 (mmHg) O2 Sat by Pulse 95 98 Oximetry 05/16/16 05/16/16 05/16/16 03:16 03:56 04:45 Temperature 97.4 F Pulse Rate 76 Respiratory 16 16 16 Rate Blood Pressure 134/59 (mmHg) O2 Sat by Pulse 94 Oximetry 05/16/16 11:11 Temperature Pulse Rate 44 Respiratory Rate Blood Pressure 105/63 (mmHg) O2 Sat by Pulse 86 Oximetry Oxygen Devices in Use Now: None Appearance: Elderly, M, laying in bed in NAD Eyes: No Scleral Icterus Ears/Nose/Mouth/Throat: Mucous Membranes Moist Neck: NL Appearance and Movements; NL JVP Respiratory: Symmetrical Chest Expansion and Respiratory Effort, Clear to Auscultation Cardiovascular: NL Sounds; No Murmurs; No JVD, RRR Abdominal: NL Sounds; No Tenderness; No Distention Lymphatic: No Cervical Adenopathy Extremities: - - B/L LE pitting edema Skin: - - B/L pedal erythema, non-tender, not warm Neurological: - - Alert, confused, no focal deficits Result Diagrams: 05/16/16 00:35 05/16/16 00:35 Assess/Plan/Problems-Billing Assessment: Hyponatremia, fluid overload in an 85 yo M with hx of ICM, dementia, CAD - Patient Problems (1) Hyponatremia Current Visit: Yes Comment: Will re-evaluate after diuresis. (2) Cardiomyopathy Current Visit: No Comment: Seems fluid overloaded likely from mild acute systolic CHF exacerbation. Weight is up from last admission. Received PO Lasix this morning, will give dose of IV Lasix this evening. Monitor urine output. Continue lisinopril, BB, ASA, statin. Cath 03/06 no significant obstructive CAD. (3) Alzheimer's dementia, late onset, with behavioral disturbance Current Visit: No Comment: Continue Aricept (4) Bladder outlet obstruction Current Visit: No Comment: Continue Flomax and watkins for now (5) DVT prophylaxis Current Visit: No Comment: HSQ
[2016-05-16] MEDS: Donepezil TAB* 5 MG PO SCH (17:13)
[2016-05-16] MEDS: Atorvastatin* 10 MG TAB PO SCH (17:14)
[2016-05-16] MEDS ORDERED: Furosemide IV* 10 MG/ML VIAL (40 MG) IV ONE (18:00)
[2016-05-16] MEDS ORDERED: HYDROmorphone* 1 MG/ML 1 ML SYR IV ONE (20:48)
[2016-05-16] MEDS: Tamsulosin CAP* 0.4 MG PO SCH (21:11)
[2016-05-16] MEDS: Haloperidol TAB* 1 MG PO PRN (21:11)
[2016-05-17] MEDS: HYDROcodone/ACETAMIN 5-325 MG* 1 TAB PO PRN ×5 (03:28→23:11)
[2016-05-17 06:07] LABS: Hematocrit 41 % (42-52); Hemoglobin 13.3 g/dl (14.0-18.0); Mean Corpuscular HGB Conc 33 g/dl (31-36); Mean Corpuscular Hemoglobin 28 pg (27-31); Mean Corpuscular Volume 87 fL (80-94); Mean Platelet Volume 10 um3 (7.4-10.4); Red Blood Count 4.67 10^6/ul (4.0-5.4); Red Cell Distribution Width 15 % (10.5-15); White Blood Count 9.8 10^3/ul (3.5-10.8)
[2016-05-17] MEDS: Heparin VIAL(*) 5000 UNITS/ML VIAL (FIVE THOUSAND) SUBCUT SCH ×3 (06:16→20:18)
[2016-05-17 06:19] LABS: BUN/Creatinine Ratio 37.4 (8-20); Blood Urea Nitrogen 46 mg/dL (6-24); CO2 Carbon Dioxide 25 mmol/L (22-32); Calcium 8.6 mg/dL (8.6-10.3); Chloride 97 mmol/L (101-111); EGFR African American 71.6 (>60); EGFR Non-African American 55.7 (>60); Glucose 104 mg/dL (70-100); Sodium 132 mmol/L (133-145)
[2016-05-17] MEDS: Furosemide TAB* 20 MG PO SCH (08:56)
[2016-05-17] MEDS: Cholecalciferol TAB* 1000 UNITS PO SCH (08:56)
[2016-05-17] MEDS: Aspirin EC Low Dose* 81 MG TAB.EC PO SCH (08:56)
[2016-05-17] MEDS: Ascorbic Acid TAB* 500 MG PO SCH (08:57)
[2016-05-17] MEDS: Lisinopril TAB* 5 MG PO SCH (08:57)
[2016-05-17] MEDS: Multivitamins/Minerals TAB PO SCH (08:57)
[2016-05-17] MEDS: Metoprolol Succinate XL TAB* 25 MG PO SCH (09:09)
[2016-05-17] MEDS: CYANOCOBALAMIN 100 MCG PO SCH (09:09)
--- NOTE | 2016-05-17 09:43 | PN ---
Subjective Date of Service: 05/17/16 Interval History: Notified by nursing that patient has been bradycardic this AM into the 30s when awake. Asymptomatic. Patient seen this morning, sitting up in bed. Says his back is bothering him significantly, "and all I get is one hydrocodone". Has had good UOP. No SOB. Family History: Unchanged from Admission Social History: Unchanged from Admission Past Medical History: Unchanged from Admission Objective Active Medications: Hydrocodone Bitart/Acetaminophen ([place] 5-325 Tab*) 1 tab PO Q4H PRN Ascorbic Acid (Vitamin C Tab*) 500 mg PO DAILY [facility] Aspirin (Aspirin Ec Low Dose*) 81 mg PO DAILY [facility] Atorvastatin Calcium (Lipitor*) 10 mg PO QPM [facility] Cholecalciferol (Vitamin D Tab*) 1,000 units PO DAILY [facility] Docusate Sodium (Colace Cap*) 200 mg PO DAILY PRN Donepezil HCl (Aricept Tab*) 5 mg PO QPM [facility] Furosemide (Lasix Tab*) 60 mg PO QAM [facility] Haloperidol (Haldol Tab*) 1 mg PO BEDTIME PRN Heparin Sodium (Porcine) (Heparin Vial(*)) 5,000 units SUBCUT Q8HR [facility] Lisinopril (Prinivil Tab*) 2.5 mg PO DAILY [facility] Metoprolol Succinate (Toprol Xl Tab*) 25 mg PO DAILY [facility] Multivitamins/Minerals (Theragran/Minerals Tab*) 1 tab PO DAILY [facility] Non Formulary Med* Cyanocobalamin 100mcg 100 admin PO DAILY [facility] Nortriptyline HCl (Pamelor Cap*) 10 mg PO BEDTIME PRN Omeprazole (Prilosec Cap*) 20 mg PO DAILY PRN; Protocol Polyethylene Glycol/Electrolytes (Miralax*) 17 gm PO DAILY PRN Tamsulosin HCl (Flomax Cap*) 0.4 mg PO BEDTIME [facility] Vital Signs 05/16/16 05/16/16 05/16/16 16:50 17:14 19:14 Temperature 98.1 F Pulse Rate 77 Respiratory 18 18 16 Rate Blood Pressure 117/73 (mmHg) O2 Sat by Pulse 100 Oximetry 05/17/16 05/17/16 08:01 09:32 Temperature 98.3 F Pulse Rate 36 Respiratory 16 16 Rate Blood Pressure 112/84 (mmHg) O2 Sat by Pulse 100 Oximetry Oxygen Devices in Use Now: None Appearance: Elderly, M, sitting in bed in NAD Eyes: No Scleral Icterus Ears/Nose/Mouth/Throat: Mucous Membranes Moist Neck: NL Appearance and Movements; NL JVP Respiratory: Symmetrical Chest Expansion and Respiratory Effort, Clear to Auscultation Cardiovascular: NL Sounds; No Murmurs; No JVD, RRR Abdominal: NL Sounds; No Tenderness; No Distention Lymphatic: No Cervical Adenopathy Extremities: - - B/L LE edema Skin: No Rash or Ulcers Neurological: - - Alert, oriented, no focal deficits Result Diagrams: 05/17/16 05:36 05/17/16 05:36 Assess/Plan/Problems-Billing Assessment: Hyponatremia, fluid overload in an 85 yo M with hx of ICM, dementia, CAD - Patient Problems (1) Bradycardia Current Visit: Yes Comment: HR in 30s this morning, patient had metoprolol held yesterday and today. Will transfer to telemetry for closer monitoring. (2) Hyponatremia Current Visit: Yes Comment: Improved with additional Lasix (3) Cardiomyopathy Current Visit: No Comment: Mild acute systolic CHF exacerbation. Weight is up from last admission. Will start BID IV Lasix. Monitor urine output. Continue lisinopril, ASA, statin. Cath 03/06 no significant obstructive CAD. (4) Alzheimer's dementia, late onset, with behavioral disturbance Current Visit: No Comment: Continue Aricept (5) Bladder outlet obstruction Current Visit: No Comment: Continue Flomax and watkins for now (6) DVT prophylaxis Current Visit: No Comment: HSQ
[2016-05-17] MEDS: Furosemide IV* 10 MG/ML 10 ML VIAL (100 MG) IV SCH (17:45)
[2016-05-17] MEDS: Donepezil TAB* 5 MG PO SCH (17:45)
[2016-05-17] MEDS: Atorvastatin* 10 MG TAB PO SCH (17:46)
[2016-05-17] MEDS: Tamsulosin CAP* 0.4 MG PO SCH (20:18)
[2016-05-17] MEDS: Haloperidol TAB* 1 MG PO PRN (21:26)
[2016-05-18] MEDS: Heparin VIAL(*) 5000 UNITS/ML VIAL (FIVE THOUSAND) SUBCUT SCH ×3 (05:14→21:53)
[2016-05-18] MEDS: HYDROcodone/ACETAMIN 5-325 MG* 1 TAB PO PRN ×4 (05:16→21:55)
[2016-05-18 05:28] LABS: Hematocrit 40 % (42-52); Mean Corpuscular HGB Conc 33 g/dl (31-36); Mean Corpuscular Hemoglobin 29 pg (27-31); Mean Corpuscular Volume 88 fL (80-94); Mean Platelet Volume 10 um3 (7.4-10.4); Red Blood Count 4.53 10^6/ul (4.0-5.4); Red Cell Distribution Width 15 % (10.5-15)
[2016-05-18 06:04] LABS: BUN/Creatinine Ratio 30.6 (8-20); Calcium 8.6 mg/dL (8.6-10.3)
[2016-05-18] MEDS: CYANOCOBALAMIN 100 MCG PO SCH (09:04)
[2016-05-18] MEDS: Furosemide IV* 10 MG/ML 10 ML VIAL (100 MG) IV SCH (09:10)
[2016-05-18] MEDS: Ascorbic Acid TAB* 500 MG PO SCH (09:15)
[2016-05-18] MEDS: Cholecalciferol TAB* 1000 UNITS PO SCH (09:15)
[2016-05-18] MEDS: Aspirin EC Low Dose* 81 MG TAB.EC PO SCH (09:15)
[2016-05-18] MEDS: Lisinopril TAB* 5 MG PO SCH (09:16)
[2016-05-18] MEDS: Multivitamins/Minerals TAB PO SCH (09:16)
--- NOTE | 2016-05-18 11:14 | PN ---
Subjective Date of Service: 05/18/16 Interval History: No complaints. More interested in commenting on my pants and the size of my hands. Denies SOB, pain. Nursing reports pt removed IV and frequently rips off tele monitoring Family History: Unchanged from Admission Social History: Unchanged from Admission Past Medical History: Unchanged from Admission Objective Active Medications: Hydrocodone Bitart/Acetaminophen ([place] 5-325 Tab*) 2 tab PO Q4H PRN PRN Reason: PAIN Last Admin: 05/18/16 09:20 Dose: 2 tab Ascorbic Acid (Vitamin C Tab*) 500 mg PO DAILY [facility] Last Admin: 05/18/16 09:15 Dose: 500 mg Aspirin (Aspirin Ec Low Dose*) 81 mg PO DAILY [facility] Last Admin: 05/18/16 09:15 Dose: 81 mg Atorvastatin Calcium (Lipitor*) 10 mg PO QPM [facility] Last Admin: 05/17/16 17:46 Dose: 10 mg Cholecalciferol (Vitamin D Tab*) 1,000 units PO DAILY [facility] Last Admin: 05/18/16 09:15 Dose: 1,000 units Docusate Sodium (Colace Cap*) 200 mg PO DAILY PRN PRN Reason: CONSTIPATION Last Admin: 05/15/16 20:10 Dose: 200 mg Donepezil HCl (Aricept Tab*) 5 mg PO QPM [facility] Last Admin: 05/17/16 17:45 Dose: 5 mg Furosemide (Lasix Tab*) 60 mg PO DAILY [facility] Haloperidol (Haldol Tab*) 1 mg PO BEDTIME PRN PRN Reason: SLEEP Last Admin: 05/17/16 21:26 Dose: 1 mg Heparin Sodium (Porcine) (Heparin Vial(*)) 5,000 units SUBCUT Q8HR [facility] Last Admin: 05/18/16 05:14 Dose: 5,000 units Lisinopril (Prinivil Tab*) 2.5 mg PO DAILY [facility] Last Admin: 05/18/16 09:16 Dose: 2.5 mg Multivitamins/Minerals (Theragran/Minerals Tab*) 1 tab PO DAILY [facility] Last Admin: 05/18/16 09:16 Dose: 1 tab Non Formulary Med* Cyanocobalamin 100mcg 100 admin PO DAILY [facility] Last Admin: 05/18/16 09:04 Dose: Not Given Nortriptyline HCl (Pamelor Cap*) 10 mg PO BEDTIME PRN PRN Reason: PAIN Last Admin: 05/15/16 22:01 Dose: 10 mg Omeprazole (Prilosec Cap*) 20 mg PO DAILY PRN; Protocol PRN Reason: INDIGESTION Polyethylene Glycol/Electrolytes (Miralax*) 17 gm PO DAILY PRN PRN Reason: CONSTIPATION Tamsulosin HCl (Flomax Cap*) 0.4 mg PO BEDTIME [facility] Last Admin: 05/17/16 20:18 Dose: 0.4 mg Vital Signs 05/17/16 05/17/16 05/17/16 11:32 11:53 14:36 Temperature 98.0 F Pulse Rate Respiratory 18 16 Rate Blood Pressure 109/67 (mmHg) O2 Sat by Pulse 98 Oximetry 05/17/16 05/17/16 05/17/16 15:37 16:36 18:38 Temperature 97.9 F Pulse Rate 75 Respiratory 17 18 16 Rate Blood Pressure 97/64 (mmHg) O2 Sat by Pulse 97 Oximetry 05/17/16 05/17/16 05/17/16 20:00 20:38 23:09 Temperature 97.3 F Pulse Rate 36 Respiratory 18 18 16 Rate Blood Pressure 105/50 (mmHg) O2 Sat by Pulse 97 Oximetry 05/17/16 05/18/16 05/18/16 23:11 00:48 01:11 Temperature Pulse Rate 80 Respiratory 18 16 Rate Blood Pressure (mmHg) O2 Sat by Pulse Oximetry 05/18/16 05/18/16 05/18/16 01:55 03:42 05:16 Temperature 98.1 F Pulse Rate 38 83 Respiratory 16 16 Rate Blood Pressure 107/56 (mmHg) O2 Sat by Pulse 95 Oximetry 05/18/16 05/18/16 05/18/16 07:16 08:00 08:07 Temperature 97.5 F Pulse Rate 84 Respiratory 18 16 18 Rate Blood Pressure 131/72 (mmHg) O2 Sat by Pulse 98 Oximetry 05/18/16 09:20 Temperature Pulse Rate Respiratory 16 Rate Blood Pressure (mmHg) O2 Sat by Pulse Oximetry Oxygen Devices in Use Now: None Appearance: NAD Eyes: No Scleral Icterus Ears/Nose/Mouth/Throat: NL Teeth, Lips, Gums, Clear Oropharnyx Neck: NL Appearance and Movements; NL JVP Respiratory: Symmetrical Chest Expansion and Respiratory Effort, Clear to Auscultation Cardiovascular: RRR, - - 2/6 [place] Abdominal: NL Sounds; No Tenderness; No Distention, No Hepatosplenomegaly Extremities: - - 1-2+ LE edema Neurological: - - AOx1 to self, knows he is in Hospital but thinks it is [place], year is 2006 Result Diagrams: 05/18/16 05:18 05/18/16 05:18 Assess/Plan/Problems-Billing Assessment: 85 yo M with hx of ICM, dementia, CADadmitted with Hyponatremia, fluid overload - Patient Problems (1) Bradycardia Comment: Resolved Holding metoprolol d/c telemetry (2) Hyponatremia Comment: Improved with Lasix (3) Alzheimer's dementia, late onset, with behavioral disturbance Comment: Continue Aricept (4) Bladder outlet obstruction Comment: Continue Flomax and watkins for now (5) Cardiomyopathy Comment: Mild acute systolic CHF exacerbation. Weight is up from last admission. change ic to PO Lasix. Monitor urine output. Continue lisinopril, ASA, statin. Cath 03/06 no significant obstructive CAD. (6) DVT prophylaxis Comment: HSQ
[2016-05-18] MEDS: Furosemide TAB* 20 MG PO SCH (13:10)
[2016-05-18] MEDS: Cyanocobalamin TAB* 500 MCG PO SCH (14:57)
[2016-05-18] MEDS: Atorvastatin* 10 MG TAB PO SCH (17:39)
[2016-05-18] MEDS: Donepezil TAB* 5 MG PO SCH (17:39)
[2016-05-18] MEDS: Haloperidol TAB* 1 MG PO PRN (19:40)
[2016-05-18] MEDS: Tamsulosin CAP* 0.4 MG PO SCH (19:41)
[2016-05-18] MEDS: Nortriptyline CAP* 10 MG PO PRN (19:41)
[2016-05-19] MEDS: HYDROcodone/ACETAMIN 5-325 MG* 1 TAB PO PRN ×4 (05:11→19:47)
[2016-05-19] MEDS: Heparin VIAL(*) 5000 UNITS/ML VIAL (FIVE THOUSAND) SUBCUT SCH ×3 (05:13→22:00)
[2016-05-19] MEDS: Ascorbic Acid TAB* 500 MG PO SCH (09:19)
[2016-05-19] MEDS: Lisinopril TAB* 5 MG PO SCH (09:20)
[2016-05-19] MEDS: Furosemide TAB* 20 MG PO SCH (09:20)
[2016-05-19] MEDS: Cyanocobalamin TAB* 500 MCG PO SCH (09:20)
[2016-05-19] MEDS: Multivitamins/Minerals TAB PO SCH (09:21)
[2016-05-19] MEDS: Aspirin EC Low Dose* 81 MG TAB.EC PO SCH (09:21)
[2016-05-19] MEDS: Cholecalciferol TAB* 1000 UNITS PO SCH (09:21)
--- NOTE | 2016-05-19 14:31 | PN ---
Subjective Date of Service: 05/19/16 Interval History: Seen and examined Pleasantly demented Has no complaints Denies SOB, CP, N/V, LH Family History: Unchanged from Admission Social History: Unchanged from Admission Past Medical History: Unchanged from Admission Objective Active Medications: Hydrocodone Bitart/Acetaminophen ([place] 5-325 Tab*) 2 tab PO Q4H PRN PRN Reason: PAIN Last Admin: 05/19/16 09:19 Dose: 2 tab Ascorbic Acid (Vitamin C Tab*) 500 mg PO DAILY [facility] Last Admin: 05/19/16 09:19 Dose: 500 mg Aspirin (Aspirin Ec Low Dose*) 81 mg PO DAILY [facility] Last Admin: 05/19/16 09:21 Dose: 81 mg Atorvastatin Calcium (Lipitor*) 10 mg PO QPM [facility] Last Admin: 05/18/16 17:39 Dose: 10 mg Cholecalciferol (Vitamin D Tab*) 1,000 units PO DAILY [facility] Last Admin: 05/19/16 09:21 Dose: 1,000 units Cyanocobalamin (Vitamin B12 Tab*) 125 mcg PO DAILY [facility] Last Admin: 05/19/16 09:20 Dose: 125 mcg Docusate Sodium (Colace Cap*) 200 mg PO DAILY PRN PRN Reason: CONSTIPATION Last Admin: 05/15/16 20:10 Dose: 200 mg Donepezil HCl (Aricept Tab*) 5 mg PO QPM [facility] Last Admin: 05/18/16 17:39 Dose: 5 mg Furosemide (Lasix Tab*) 60 mg PO DAILY [facility] Last Admin: 05/19/16 09:20 Dose: 60 mg Haloperidol (Haldol Tab*) 1 mg PO BEDTIME PRN PRN Reason: SLEEP Last Admin: 05/18/16 19:40 Dose: 1 mg Heparin Sodium (Porcine) (Heparin Vial(*)) 5,000 units SUBCUT Q8HR [facility] Last Admin: 05/19/16 05:13 Dose: 5,000 units Lisinopril (Prinivil Tab*) 2.5 mg PO DAILY [facility] Last Admin: 05/19/16 09:20 Dose: 2.5 mg Multivitamins/Minerals (Theragran/Minerals Tab*) 1 tab PO DAILY [facility] Last Admin: 05/19/16 09:21 Dose: 1 tab Omeprazole (Prilosec Cap*) 20 mg PO DAILY PRN; Protocol PRN Reason: INDIGESTION Polyethylene Glycol/Electrolytes (Miralax*) 17 gm PO DAILY PRN PRN Reason: CONSTIPATION Tamsulosin HCl (Flomax Cap*) 0.4 mg PO BEDTIME MARCK Last Admin: 05/18/16 19:41 Dose: 0.4 mg Vital Signs 05/18/16 05/18/16 05/18/16 15:29 17:53 19:53 Temperature 97.9 F Pulse Rate 81 Respiratory 16 18 20 Rate Blood Pressure 102/58 (mmHg) O2 Sat by Pulse 100 Oximetry 05/18/16 05/18/16 05/18/16 20:00 21:55 23:50 Temperature 97.9 F Pulse Rate 44 Respiratory 18 18 16 Rate Blood Pressure 112/59 (mmHg) O2 Sat by Pulse 94 Oximetry 05/18/16 05/19/16 05/19/16 23:55 05:11 07:11 Temperature Pulse Rate Respiratory 18 16 16 Rate Blood Pressure (mmHg) O2 Sat by Pulse Oximetry 05/19/16 05/19/16 05/19/16 07:56 08:00 09:19 Temperature Pulse Rate 42 Respiratory 16 16 16 Rate Blood Pressure 113/67 (mmHg) O2 Sat by Pulse 97 Oximetry 05/19/16 11:19 Temperature Pulse Rate Respiratory 16 Rate Blood Pressure (mmHg) O2 Sat by Pulse Oximetry Oxygen Devices in Use Now: None Appearance: sitting in chair, NAD Eyes: No Scleral Icterus, PERRLA Ears/Nose/Mouth/Throat: Clear Oropharnyx, Mucous Membranes Moist Neck: NL Appearance and Movements; NL JVP, Trachea Midline Respiratory: Symmetrical Chest Expansion and Respiratory Effort, Clear to Auscultation Cardiovascular: RRR Abdominal: NL Sounds; No Tenderness; No Distention, No Hepatosplenomegaly Lymphatic: No Cervical Adenopathy Extremities: - - 2+ LE edema Neurological: - - Aox2 to self and year but could not say he was in a hospital Lines/Tubes/Other Access: Clean, Dry and Intact Watkins Result Diagrams: 05/18/16 05:18 05/18/16 05:18 Assess/Plan/Problems-Billing Assessment: 85 yo M with hx of ICM, dementia, CAD admitted with Hyponatremia, fluid overload and worsening aggression at home - Patient Problems (1) STACIE (acute kidney injury) Comment: Hold lasix in AM and check BMP dose accordingly (2) Hyponatremia Comment: Improved with Lasix (3) Bradycardia Comment: Noted to have HR on 40s on pulse ox however EKG at same time indicated HR in 80s. Holding metoprolol d/c telemetry (4) Alzheimer's dementia, late onset, with behavioral disturbance Comment: Continue Aricept (5) Bladder outlet obstruction Comment: Continue Flomax and watkins for now (6) Cardiomyopathy Comment: Mild acute systolic CHF exacerbation. Weight is up from last admission. change to PO Lasix. Monitor urine output. Continue lisinopril, ASA, statin. Cath 03/06 no significant obstructive CAD. (7) DVT prophylaxis Comment: HSQ
[2016-05-19] MEDS: Donepezil TAB* 5 MG PO SCH (17:33)
[2016-05-19] MEDS: Atorvastatin* 10 MG TAB PO SCH (17:33)
[2016-05-19] MEDS: Haloperidol TAB* 1 MG PO PRN (20:30)
[2016-05-19] MEDS: Tamsulosin CAP* 0.4 MG PO SCH (21:59)
[2016-05-20] MEDS ORDERED: Haloperidol TAB* 2 MG ONE (00:14)
[2016-05-20] MEDS: Haloperidol TAB* 2 MG PO PRN ×2 (00:16→08:46)
[2016-05-20] MEDS: HYDROcodone/ACETAMIN 5-325 MG* 1 TAB PO PRN ×6 (01:05→21:24)
[2016-05-20] MEDS ORDERED: oxyCODONE TAB* 5 MG TAB PO ONE ×2 (02:03)
[2016-05-20] MEDS ORDERED: oxyCODONE TAB* 5 MG TAB ONE (02:07)
[2016-05-20] MEDS: Heparin VIAL(*) 5000 UNITS/ML VIAL (FIVE THOUSAND) SUBCUT SCH ×3 (05:17→21:25)
[2016-05-20 06:52] LABS: BUN/Creatinine Ratio 34.9 (8-20); Calcium 8.8 mg/dL (8.6-10.3); EGFR African American 69.6 (>60); EGFR Non-African American 54.1 (>60); Potassium 4.4 mmol/L (3.5-5.0)
[2016-05-20] MEDS: Cholecalciferol TAB* 1000 UNITS PO SCH (10:31)
[2016-05-20] MEDS: Ascorbic Acid TAB* 500 MG PO SCH (10:31)
[2016-05-20] MEDS: Aspirin EC Low Dose* 81 MG TAB.EC PO SCH (10:31)
[2016-05-20] MEDS: Multivitamins/Minerals TAB PO SCH (10:32)
[2016-05-20] MEDS: Lisinopril TAB* 5 MG PO SCH (10:32)
[2016-05-20] MEDS: Cyanocobalamin TAB* 500 MCG PO SCH (10:32)
--- NOTE | 2016-05-20 15:58 | PN ---
Subjective Date of Service: 05/20/16 Interval History: Seen with 2 daughters and at bedside No complaints. Discuss d/c to NH with daughters but not patient as they indicate this information has made pt very aggressive Family History: Unchanged from Admission Social History: Unchanged from Admission Past Medical History: Unchanged from Admission Objective Active Medications: Hydrocodone Bitart/Acetaminophen ([place] 5-325 Tab*) 2 tab PO Q4H PRN PRN Reason: PAIN Last Admin: 05/20/16 13:26 Dose: 2 tab Ascorbic Acid (Vitamin C Tab*) 500 mg PO DAILY [facility] Last Admin: 05/20/16 10:31 Dose: 500 mg Aspirin (Aspirin Ec Low Dose*) 81 mg PO DAILY [facility] Last Admin: 05/20/16 10:31 Dose: 81 mg Atorvastatin Calcium (Lipitor*) 10 mg PO QPM [facility] Last Admin: 05/19/16 17:33 Dose: 10 mg Cholecalciferol (Vitamin D Tab*) 1,000 units PO DAILY [facility] Last Admin: 05/20/16 10:31 Dose: 1,000 units Cyanocobalamin (Vitamin B12 Tab*) 125 mcg PO DAILY [facility] Last Admin: 05/20/16 10:32 Dose: 125 mcg Docusate Sodium (Colace Cap*) 200 mg PO DAILY PRN PRN Reason: CONSTIPATION Last Admin: 05/15/16 20:10 Dose: 200 mg Donepezil HCl (Aricept Tab*) 5 mg PO QPM [facility] Last Admin: 05/19/16 17:33 Dose: 5 mg Haloperidol (Haldol Tab*) 1 mg PO BEDTIME PRN PRN Reason: SLEEP Last Admin: 05/19/16 20:30 Dose: 1 mg Haloperidol (Haldol Tab*) 2 mg PO Q6H PRN PRN Reason: AGITATION Last Admin: 05/20/16 08:46 Dose: 2 mg Heparin Sodium (Porcine) (Heparin Vial(*)) 5,000 units SUBCUT Q8HR [facility] Last Admin: 05/20/16 13:43 Dose: 5,000 units Lisinopril (Prinivil Tab*) 2.5 mg PO DAILY [facility] Last Admin: 05/20/16 10:32 Dose: 2.5 mg Multivitamins/Minerals (Theragran/Minerals Tab*) 1 tab PO DAILY [facility] Last Admin: 05/20/16 10:32 Dose: 1 tab Omeprazole (Prilosec Cap*) 20 mg PO DAILY PRN; Protocol PRN Reason: INDIGESTION Polyethylene Glycol/Electrolytes (Miralax*) 17 gm PO DAILY PRN PRN Reason: CONSTIPATION Tamsulosin HCl (Flomax Cap*) 0.4 mg PO BEDTIME MARCK Last Admin: 05/19/16 21:59 Dose: 0.4 mg Vital Signs 05/19/16 05/19/16 05/19/16 16:44 19:47 20:00 Temperature Pulse Rate Respiratory 16 16 16 Rate Blood Pressure (mmHg) O2 Sat by Pulse Oximetry 05/19/16 05/19/16 05/19/16 21:47 22:32 22:47 Temperature 99.1 F Pulse Rate 41 64 Respiratory 17 18 Rate Blood Pressure 110/76 (mmHg) O2 Sat by Pulse 100 Oximetry 05/19/16 05/20/16 05/20/16 23:24 01:05 02:11 Temperature 97.8 F Pulse Rate Respiratory 18 17 Rate Blood Pressure (mmHg) O2 Sat by Pulse Oximetry 05/20/16 05/20/16 05/20/16 03:05 04:11 05:20 Temperature Pulse Rate Respiratory 16 17 16 Rate Blood Pressure (mmHg) O2 Sat by Pulse Oximetry 05/20/16 05/20/16 05/20/16 07:20 07:29 08:00 Temperature Pulse Rate 42 Respiratory 14 18 Rate Blood Pressure 105/60 (mmHg) O2 Sat by Pulse 100 Oximetry 05/20/16 05/20/16 05/20/16 08:46 09:20 09:42 Temperature Pulse Rate 46 Respiratory 16 14 Rate Blood Pressure (mmHg) O2 Sat by Pulse Oximetry 05/20/16 05/20/16 10:46 13:26 Temperature Pulse Rate Respiratory 14 10 Rate Blood Pressure (mmHg) O2 Sat by Pulse Oximetry Oxygen Devices in Use Now: None Appearance: sitting on edge of bed, NAD Eyes: No Scleral Icterus, PERRLA Ears/Nose/Mouth/Throat: Mucous Membranes Moist Neck: NL Appearance and Movements; NL JVP, Trachea Midline Respiratory: Symmetrical Chest Expansion and Respiratory Effort, Clear to Auscultation Cardiovascular: RRR Abdominal: NL Sounds; No Tenderness; No Distention, No Hepatosplenomegaly Extremities: - - 2+ LE edema Neurological: - - AOx1 to self Result Diagrams: 05/18/16 05:18 05/20/16 06:13 Assess/Plan/Problems-Billing Assessment: 85 yo M with hx of ICM, dementia, CAD admitted with Hyponatremia, fluid overload and worsening aggression at home - Patient Problems (1) STACIE (acute kidney injury) Comment: Improved with holding lasix restart at 40mg PO tomorrow (2) Hyponatremia Comment: Improved with Lasix (3) Bradycardia Comment: Noted to have HR on 40s on pulse oxymetry however EKG at same time indicated HR in 80s. Holding metoprolol d/c telemetry (4) Alzheimer's dementia, late onset, with behavioral disturbance Comment: Continue Aricept (5) Bladder outlet obstruction Comment: Continue Flomax and watkins for now (6) Cardiomyopathy Comment: Mild acute systolic CHF exacerbation. Weight is up from last admission. change to PO Lasix and decrease to 40mg given STACIE Monitor urine output. Continue lisinopril, ASA, statin. Cath 03/06 no significant obstructive CAD. (7) DVT prophylaxis Comment: HSQ
[2016-05-20] MEDS: Atorvastatin* 10 MG TAB PO SCH (17:07)
[2016-05-20] MEDS: Donepezil TAB* 5 MG PO SCH (17:07)
[2016-05-20] MEDS: Tamsulosin CAP* 0.4 MG PO SCH (21:25)
[2016-05-20] MEDS: Haloperidol TAB* 1 MG PO PRN (22:57)
[2016-05-21] MEDS: HYDROcodone/ACETAMIN 5-325 MG* 1 TAB PO PRN ×4 (01:32→19:32)
[2016-05-21] MEDS: Heparin VIAL(*) 5000 UNITS/ML VIAL (FIVE THOUSAND) SUBCUT SCH ×2 (05:18→13:52)
[2016-05-21] MEDS: Haloperidol TAB* 2 MG PO PRN ×2 (05:21→11:19)
[2016-05-21] MEDS: Lisinopril TAB* 5 MG PO SCH (07:13)
[2016-05-21] MEDS: Aspirin EC Low Dose* 81 MG TAB.EC PO SCH (07:13)
[2016-05-21] MEDS: Cholecalciferol TAB* 1000 UNITS PO SCH (07:13)
[2016-05-21] MEDS: Multivitamins/Minerals TAB PO SCH (07:13)
[2016-05-21] MEDS: Ascorbic Acid TAB* 500 MG PO SCH (07:14)
[2016-05-21] MEDS: Furosemide TAB* 40 MG PO SCH (07:14)
[2016-05-21] MEDS: Cyanocobalamin TAB* 500 MCG PO SCH (07:14)
[2016-05-21] MEDS ORDERED: Hemorrhoidal OINT PR PRN (07:53)
[2016-05-21] MEDS: Donepezil TAB* 5 MG PO SCH (16:41)
[2016-05-21] MEDS: Atorvastatin* 10 MG TAB PO SCH (16:41)
[2016-05-21] MEDS: Tamsulosin CAP* 0.4 MG PO SCH (20:59)
[2016-05-21] MEDS ORDERED: QUEtiapine TAB* 25 MG PO SCH (21:00)
[2016-05-21] MEDS ORDERED: Haloperidol INJ IV/IM* 5 MG/ML AMP IM ONE ×2 (22:32→23:38)
[2016-05-21] MEDS ORDERED: Haloperidol INJ IV/IM* 5 MG/ML AMP ONE ×2 (22:33→23:41)
[2016-05-21 22:54] LABS: Urine Bacteria Absent (Absent); Urine Bilirubin Negative (Negative); Urine Glucose Negative (Negative); Urine Nitrite Negative (Negative)
--- NOTE | 2016-05-21 23:40 | PN ---
Progress Note - Progress Note Note: Paged for agitation and combativeness - no IV and unwilling to take PO. Ordered Haldol 2 mg IM. Rapid response called, patient seemed to called and now he seems to be combative again - Haldol 4 mg IM ordered.
[2016-05-22] MEDS: Heparin VIAL(*) 5000 UNITS/ML VIAL (FIVE THOUSAND) SUBCUT SCH ×2 (00:31→06:28)
[2016-05-22] MEDS: HYDROcodone/ACETAMIN 5-325 MG* 1 TAB PO PRN ×3 (00:35→07:45)
[2016-05-22] MEDS ORDERED: Haloperidol INJ IV/IM* 5 MG/ML AMP IM ONE (02:41)
[2016-05-22] MEDS: Multivitamins/Minerals TAB PO SCH (07:43)
[2016-05-22] MEDS: Ascorbic Acid TAB* 500 MG PO SCH (07:43)
[2016-05-22] MEDS: Cyanocobalamin TAB* 500 MCG PO SCH (07:43)
[2016-05-22] MEDS: Cholecalciferol TAB* 1000 UNITS PO SCH (07:43)
[2016-05-22] MEDS: Aspirin EC Low Dose* 81 MG TAB.EC PO SCH (07:44)
[2016-05-22] MEDS: Furosemide TAB* 40 MG PO SCH (07:46)
[2016-05-22] MEDS: Lisinopril TAB* 5 MG PO SCH (07:51)
--- NOTE | 2016-05-22 07:53 | DS ---
DISCHARGE SUMMARY: DATE OF ADMISSION: 05/15/16 DATE OF DISCHARGE: 05/22/16 PRIMARY CARE PROVIDER: Dr. Mejia. DISPOSITION ON DISCHARGE: [facility]. PRIMARY DIAGNOSES: 1. Systolic heart failure exacerbation. 2. Advancing dementia with behavioral disturbances. SECONDARY DIAGNOSES: Include: 1. Acute kidney injury. 2. Hyponatremia. 3. Bradycardia. 4. Alzheimer's dementia. 5. Bladder outlet obstruction/urinary retention. 6. Cardiomyopathy with mild acute systolic dysfunction. 7. Coronary artery disease. 8. Hypertension. DIET ON DISCHARGE: Heart healthy, low sodium, fluid restricted to 1500 cc. ACTIVITY ON DISCHARGE: As tolerated. MEDICATIONS ON DISCHARGE: 1. Lisinopril 2.5 mg daily. 2. [place] 10/325 two tabs every 4 hours as needed for pain. 3. Haloperidol 1 mg at bedtime as needed for behavioral disturbances. 4. Nexium 40 mg daily. 5. Aricept 5 mg in the evening. 6. Docusate 200 mg daily as needed for constipation. 7. Vitamin B12 100 mcg daily. 8. Cholecalciferol 1000 units daily. 9. Atorvastatin 10 mg in the evening. 10. Aspirin 81 mg daily. 11. Ascorbic acid 500 mg daily. 12. Flomax 0.4 mg at bedtime. 13. MiraLax 17 g daily as needed for constipation. 14. Multivitamin one tab daily. 15. Seroquel 50 mg at bedtime. 16. Preparation H hemorrhoidal cream, apply per rectum 3 times a day as needed for discomfort. 17. Lasix 40 mg daily. HISTORY OF PRESENT ILLNESS AND HOSPITAL COURSE: This is an 85-year-old gentleman with past medical history as outlined in the history of present illness on the day of admission including history of CAD, status post CABG, dementia, hypertension, ischemic cardiomyopathy, and recent stay at [facility] after presenting with urinary retention, where Schaffer was placed, admitted briefly, discharged back to home, returned with continued lower extremity edema as well as worsening dementia with behavioral disturbances. He was admitted to the hospitalist service and was managed with continued diuresis for his lower extremity edema, as well as Haldol and the addition of Seroquel for behavioral disturbances. It was noted acute kidney injury improved with altered doses of Lasix. Additionally was noted bradycardia for which his metoprolol was held. Of note, this author did witness bradycardia on pulse oximetry that did not correlate with EKG. The patient was always asymptomatic with recorded low heart rates. The patient was seen in conjunction with his and both his daughters who are in agreement with discharging to long-term care facility given [id number] medical condition at home without senior living with superimposed dementia with behavioral disturbances. There are no complications with this patient's hospital stay. At followup, please: 1. Adjust blood pressure medications as needed. 2. Evaluate volume status. Adjust Lasix as needed, and consider repeat BMP in several weeks. 3. No other specific labs or vitals that need followup. Reasons to return to the hospital including, but not limited to recurrent or worsening of symptoms, chest pain, shortness of breath, nausea, vomiting, lightheadedness, loss of consciousness, near loss of consciousness, syncope, inability to obtain or tolerate medications, bleeding from any source, nausea, vomiting, diarrhea were discussed with family. They acknowledged understanding. TIME SPENT: Forty-five minutes were spent on the discharge of this patient with greater than half spent [id number] with the patient and his family. CC: Dr. Mejia; [facility]* [id number]/[facility] #: [id number] MTDD
[2016-05-22 08:18] VITALS: BP 99/42
== END 2016-05-22 09:15 | DRG 56 ==
LOC: ED 15:29 → MED 17:50 → OBSVTOIN 05-16 14:52 → MEDTELE 05-17 09:51 → MED 05-19 22:15
PROVIDERS: ADMIT Hospitalist; ATTEND Internal Medicine
DX: G30.1 Alzheimer's disease with late onset (principal); I50.23 Acute on chronic systolic (congestive) heart failure; N17.9 Acute kidney failure, unspecified; E87.1 Hypo-osmolality and hyponatremia; F02.81 Dementia in other diseases classified elsewhere, unspecified severity, with behavioral disturbance; I11.0 Hypertensive heart disease with heart failure; R00.1 Bradycardia, unspecified; N32.0 Bladder-neck obstruction; I25.10 Atherosclerotic heart disease of native coronary artery without angina pectoris; Z79.82 Long term (current) use of aspirin; Z95.1 Presence of aortocoronary bypass graft; I25.5 Ischemic cardiomyopathy; E78.5 Hyperlipidemia, unspecified; Z86.73 Personal history of transient ischemic attack (TIA), and cerebral infarction without residual deficits; Z88.8 Allergy status to other drugs, medicaments and biological substances; N40.0 Benign prostatic hyperplasia without lower urinary tract symptoms; Z87.01 Personal history of pneumonia (recurrent); K21.9 Gastro-esophageal reflux disease without esophagitis; G89.4 Chronic pain syndrome; M19.90 Unspecified osteoarthritis, unspecified site; Z97.4 Presence of external hearing-aid; F41.9 Anxiety disorder, unspecified; F32.9 Major depressive disorder, single episode, unspecified; Z85.820 Personal history of malignant melanoma of skin; Z98.42 Cataract extraction status, left eye; Z98.41 Cataract extraction status, right eye; Z82.49 Family history of ischemic heart disease and other diseases of the circulatory system; Z87.891 Personal history of nicotine dependence; I44.7 Left bundle-branch block, unspecified; R45.1 Restlessness and agitation
CPT/HCPCS: 36415; 80048; 80053; 81003; 81015; 85025; 87077; 87086; 87185; 87186; 93005; A9270-GY; J1170; J1630; J1644; J1940

== ENCOUNTER 2017-09-09 08:22 | Observation (INO) | payer MEDICARE, OTHER ==
[2017-09-09 09:13] LABS: ABS Basophils 0.1 10^3/ul (0-0.2); ABS Eosinophils 0.2 10^3/ul (0-0.6); ABS Lymphocytes 2.2 10^3/ul (1.0-4.8); ABS Monocytes 0.5 10^3/ul (0-0.8); ABS Neutrophils 4.2 10^3/ul (1.5-7.7); ABS Nucleated RBC 0 10^3/ul; Eosinophil % 2.5 % (0-6); Hematocrit 40 % (42-52); Hemoglobin 13.3 g/dl (14.0-18.0); Lymphocyte % 30.7 % (25-47); Mean Corpuscular HGB Conc 34 g/dl (31-36); Mean Corpuscular Hemoglobin 30 pg (27-31); Mean Corpuscular Volume 89 fL (80-94); Mean Platelet Volume 8.6 um3 (7.4-10.4); Nucleated Red Blood Cells % 0; Platelet Count 227 10^3/ul (150-450); Red Blood Count 4.47 10^6/ul (4.00-5.40); Red Cell Distribution Width 14 % (10.5-15); White Blood Count 7.2 10^3/ul (3.5-10.8)
[2017-09-09] MEDS ORDERED: Aspirin 81 mg CHEW TAB* 81 MG TAB.CHEW PO ONE (09:18)
[2017-09-09] MEDS ORDERED: NS 0.9% 500 ML* 500 ML IV ONE (09:46)
[2017-09-09] MEDS ORDERED: Artificial Tears* 15 ML BTL RIGHT EYE PRN (11:30)
[2017-09-09] MEDS ORDERED: Ondansetron 40 MG VIAL* 2 MG/ML 20 ML VIAL IV PRN (11:43)
--- NOTE | 2017-09-09 13:23 | RAD ---
Indication: Chest pain. Single frontal view of the chest performed at 0938 hours was reviewed. Comparison is made with previous exam dated March 05, 2016. No mediastinal shift is noted. Heart is of normal size and configuration. Lung prajapati appear clear. Right pleural effusion is noted. This is improved since March 05, 2016. IMPRESSION: NO ACTIVE CARDIOPULMONARY DISEASE IS NOTED. SMALL RIGHT PLEURAL EFFUSION IS PRESENT.
[2017-09-09] MEDS: Carbamide Peroxide 6.5% OTIC* 15 ML BTL BOTH EARS SCH ×2 (14:08→21:56)
--- NOTE | 2017-09-09 14:08 | HP ---
ADMISSION HISTORY AND PHYSICAL: DATE OF ADMISSION: 09/09/17 PRIMARY CARE PROVIDER: Reevesfredis Camara, previously Dr. Mejia. HEALTHCARE PROXY: His Lisa Reyes. CODE STATUS: DNR/DNI reviewed with the patient and his healthcare proxy. SOURCE OF INFORMATION: History obtained from interview with patient, his , and his daughter. Discussion with admitting or receiving ED physician. RELIABILITY: Fair to poor. CHIEF COMPLAINT: Dizziness. HISTORY OF PRESENT ILLNESS: This is an 86-year-old man with past medical history of CAD, status post CABG in 2013 as well as ischemic cardiomyopathy with systolic heart failure who had been feeling himself 2 days prior to presentation was out with his family for 4 to 5 hours during the day when out to eat without difficulty. However, today he woke up until "off-balance around 6 :30 a.m." He denies chest pain or chest discomfort at multiple times however on presentation did indicate receiving ER physician that chest pain awoke him from his sleep. He has had episodes of feeling off balance in the past and has felt muscle similar to previous events. He told the nurses at [facility] where he currently resides and was transferred to [facility] for further evaluation. He denies any shortness of breath, but did endorse nausea without emesis or diaphoresis, palpitations or loss of consciousness. He acknowledges that he felt some sinus as well as frontal congestion as pressure that started 1 or 2 days prior in the absence of rhinorrhea, cough, sore throat or fever. He notes his ears has felt clogged and that he was receiving an intervention for "heavy wax." He uses wheelchair for mobility at all times and notes there have been medication changes over the recent weeks, but cannot identify what has been changed or exactly when. When he was seen by this author he continued to have the sensation of feeling off-balance with no other complaints. PAST MEDICAL HISTORY: Includes systolic heart failure, dementia - Alzheimer's, history of bladder outlet obstruction, CAD, status post CABG in 2013, reevaluation with coronary catheterization in 2016, history of hypertension, left bundle branch block, carpal tunnel syndrome and CKD. MEDICATIONS: Medication from transfer report from [facility] indicate: 1. [place] 5/325 1 tab 4 times a day as needed for pain hold for lethargy. 2. Cyclobenzaprine 10 mg every 12 hours as needed for muscle spasm. 3. Morphine sulfate ER 15 mg at bedtime. 4. Seroquel 12.5 mg twice daily. 5. Potassium chloride 20 mEq daily. 6. Lisinopril 2.5 mg daily. 7. Paroxetine 10 mg at bedtime. 8. Lasix 40 mg twice daily. 9. Vitamin D3 50,000 units every 2 weeks. 10. Melatonin 6 mg in the evening. 11. Tamsulosin 0.4 mg at bedtime. 12. Tylenol extra strength 1000 mg daily as needed for pain. 13. Artificial Tears 0.4 mg right eye twice daily as needed. 14. Aspirin 81 mg daily. 15. Docusate 200 mg daily. 13. Preparation H cream every 8 hours as needed. ALLERGIES: SPIRONOLACTONE. FAMILY HISTORY: Negative for CAD. SOCIAL HISTORY: Quit tobacco in 1990, previously worked as a multi operation machine operator. Currently resides at [facility]. REVIEW OF SYSTEMS: As per HPI, otherwise all other systems negative. PHYSICAL EXAMINATION GENERAL: Sitting up in bed, interactive, pleasant, in no apparent distress, appears younger than stated age. VITAL SIGNS: In the emergency room 138/68, heart rate 58, respiratory rate of 18, 96% on room air, T-max 97.2. HEENT: His oropharynx is clear. He has moist mucous membranes. Sclerae are anicteric. His ears indicate impacted cerumen on the left however some medication potentially bullous myringitis underlying hard to identify with the impacted cerumen completely impacted auditory canal in the right. NECK: He has non-elevated JVD. He has no cervical or supraclavicular lymphadenopathy. LUNGS: His lungs are clear to auscultation. HEART: He has a softly peaking 2/6 systolic ejection murmur loudest in the left upper sternal border. ABDOMEN: Soft, nontender, nondistended. EXTREMITIES: Warm and well perfused without clubbing cyanosis or edema. NEUROLOGIC: He is alert and oriented x3. Although his memory is impaired is indicated by his relaying of history from today. His cranial nerves II through XII are intact. He has intact strength 5/5 throughout. He has mild left pronator drift. He has some dysmetria with [id number]. SKIN: No skin changes. PSYCHIATRIC: He has anxiety, agitation, or depression. DIAGNOSTIC STUDIES/LAB DATA: Labs reviewed. Troponin I 0.001, BUN 40, creatinine 1.37. White blood cell count 7.2. Data reviewed. Chest x-ray no active cardiopulmonary disease on this author's interpretation. EKG; sinus bradycardia, ventricular rate of 59. Left bundle branch block. ASSESSMENT AND PLAN: This is an 86-year-old man, past medical history as outlined in the history of present illness on the day of admission including systolic heart failure, history of dementia, coronary artery disease with previous coronary artery bypass graft presented to the hospital. Chief complaint at this time is feeling of off-balance however did indicate chest pain upon presentation. Of note, after discussion with nurse in the emergency room he did have orthostatic vitals that were not recorded in the EMR, which indicated drop in the systolic pressure from 130 to 100 upon standing as well as increase in his heart rate from 80s to 120s indicative of orthostatic hypotension. Planning to admit patient OBD to the hospital further investigation. 1. Chest pain. Difficult to evaluate currently denying adamantly that he had any chest pain did relay the ED provider that he did have chest pain. He certainly has risk factors with cardiac revascularization in 2013. He did have cardiac catheterization at February 2016, which I indicated widely patent grafts. There is no chest pain at this time we will continue to trend troponins. If remain negative we do not plan on further investigation. 2. Lightheadedness/sensation of feeling imbalanced. The patient and family indicated there had been some medication changes of which some of his, chronic medications can contribute to lightheadedness including his paroxetine, tamsulosin, narcotics, Seroquel and cyclobenzaprine. Additionally, his orthostatic, which may contribute to the sensation however noted that he is largely wheelchair bound. He received a L of normal saline in the emergency room, holding his Lasix. Recheck orthostatic vital signs in the morning. Additionally, his ears indicate cerumen impaction. We will treat with carbamide peroxide as well as amoxicillin for potentially underlying infection especially in the setting of recent sinus pressure and congestion although has no fevers. 3. Congestive heart failure as above holding Lasix. 4. Chronic kidney disease. Stable. 5. Dementia. He had been on Namenda. It is not on his current medication list. This also can contribute to the sensation of disequilibrium. Currently stable. 6. Coronary artery disease. Continue lisinopril and aspirin. I note he is not on a beta jerry I suspect secondary to bradycardia. Apparently, current heart rate is 59, requires no intervention. 7. DVT prophylaxis. Heparin subcutaneously. 8. Code status. DNR. [id number]/[facility] #: [id number] MTDD
[2017-09-09] MEDS: HYDROcodone/ACETAMIN 5-325 MG* 1 TAB PO PRN (17:17)
[2017-09-09] MEDS ORDERED: Morphine VIAL* 4 MG/ML VIAL (1 ml vial) IV ONE (17:38)
[2017-09-09] MEDS ORDERED: Cyclobenzaprine TAB* 10 MG PO PRN (17:38)
[2017-09-09] MEDS ORDERED: Melatonin 3 MG TAB PO SCH (21:00)
[2017-09-09] MEDS ORDERED: PARoxetine HCL TAB* 10 MG PO SCH (21:00)
[2017-09-09] MEDS ORDERED: Tamsulosin CAP* 0.4 MG PO SCH (21:00)
[2017-09-09] MEDS ORDERED: Morphine ORAL.SOLN 10 mg* 2 MG/ML UDC 5 ml PO SCH (21:00)
[2017-09-09] MEDS: Amoxicillin PO (*) 500 MG CAP PO SCH (21:41)
[2017-09-09] MEDS: QUEtiapine TAB* 25 MG PO SCH (21:41)
[2017-09-10] MEDS: HYDROcodone/ACETAMIN 5-325 MG* 1 TAB PO PRN ×2 (00:40→11:29)
[2017-09-10] MEDS: Carbamide Peroxide 6.5% OTIC* 15 ML BTL BOTH EARS SCH ×2 (05:33→11:31)
[2017-09-10] MEDS: Amoxicillin PO (*) 500 MG CAP PO SCH (08:18)
[2017-09-10] MEDS: QUEtiapine TAB* 25 MG PO SCH (08:19)
[2017-09-10 08:24] VITALS: BP 106/65
[2017-09-10] MEDS ORDERED: Potassium Chlor TAB* 20 MEQ TAB.ER PO SCH (09:00)
[2017-09-10] MEDS ORDERED: Aspirin EC TAB* 81 MG TAB.EC PO SCH (09:00)
[2017-09-10] MEDS ORDERED: Lisinopril TAB* 5 MG PO SCH (09:00)
[2017-09-10] MEDS ORDERED: Docusate CAP* 100 MG PO SCH (09:00)
--- NOTE | 2017-09-10 12:01 | ED ---
Vincenzo Nicholas Angela, scribed for Carlos Alberto Zhu MD on 09/09/17 at 0856 . HPI Chest Pain - HPI Summary HPI Summary: This pt is an 86 y/o male presenting to [facility] via EMS from [facility] for chest pain this morning. Pt reports he had mild chest pain "early this morning. " He describes chest pain as pressure and notes it is nonradiating. Denies pain radiates to arm, back or jaw. Pt states this episode of chest pain lasted for 3- 4 minutes. He notes that "something" woke him up this morning unsure if it was his chest pain. Denies cough, SOB, swelling in LE. Pt additionally c/o headache and dizziness. He describes pressure in his head. Denies frequent headaches. Pt states his chest pain is better now, radiating it 1/0 in severity.. EMS did not administer nitroglycerin due to pt's mild pain. PMHx includes s/p CABG, multivessel coronary artery bypass in 2013, HTN. Pt is hard of hearing. - History of Current Complaint Chief Complaint: EDChestWallPain Time Seen by Provider: 09/09/17 08:26 Hx Obtained From: Patient Onset/Duration: Started Hours Ago, Still Present Timing: Lasting Hours Current Severity: Mild Pain Intensity: 1 Pain Scale Used: 0-10 Numeric Chest Pain Location: Diffuse Chest Pain Radiates: No Character: Pressure/Squeezing - Pressure Aggravating Factor(s): Nothing Alleviating Factor(s): Nothing Associated Signs and Symptoms: Positive: Chest Pain, Headaches. Negative: Shortness of Breath, Fever, Chills, Cough - Additional Pertinent History Primary Care Physician: MAGDA - Allergy/Home Medications Allergies/Adverse Reactions: Allergies Allergy/AdvReac Type Severity Reaction Status Date / Time spironolactone Allergy Unknown Verified 09/09/17 12:38 Reaction Details Home Medications: Home Medications Acetaminophen [Tylenol Extra Strength] 1,000 mg PO DAILY PRN 09/09/17 [History Confirmed 09/09/17] Artificial Tears* 15 ML BTL [Polyvinyl Alcohol 1.4% OPTH*] 1 drop RIGHT EYE BID PRN 09/09/17 [History Confirmed 09/09/17] Aspirin EC TAB* [Ecotrin EC Low Dose 81 MG*] 81 mg PO QAM 09/09/17 [History Confirmed 09/09/17] Cholecalciferol TAB* [Vitamin D TAB*] 50,000 unit PO Q14D 09/09/17 [History Confirmed 09/09/17] Cyclobenzaprine TAB* [Flexeril 10 MG TAB*] 10 mg PO Q12H PRN 09/09/17 [History Confirmed 09/09/17] Docusate CAP* [Colace Cap*] 200 mg PO DAILY 09/09/17 [History Confirmed 09/09/17 ] Furosemide TAB* [Lasix TAB*] 40 mg PO BID 09/09/17 [History Confirmed 09/09/17] Hemorrhoidal OINT* [Preparation H*] 1 applic PA Q8H PRN 09/09/17 [History Confirmed 09/09/17] Hydrocodone/Acetamin 10/325(NF [[employer] 10/325 (NF)] 1 tab PO QID PRN 09/09/17 [ History Confirmed 09/09/17] Lisinopril TAB* [Prinivil TAB*] 2.5 mg PO DAILY 09/09/17 [History Confirmed ] Melatonin (NF) 6 mg PO BEDTIME 09/09/17 [History Confirmed 09/09/17] Morphine Sulfate [Morphine Sulfate ER] 15 mg PO BEDTIME 09/09/17 [History Confirmed 09/09/17] PARoxetine HCL TAB* [Paxil TAB*] 10 mg PO BEDTIME 09/09/17 [History Confirmed ] Potassium Chlor TAB* [Klor Con ER TAB*] 20 meq PO DAILY 09/09/17 [History Confirmed 09/09/17] QUEtiapine TAB* [Seroquel 25 MG TAB*] 12.5 mg PO BID 09/09/17 [History Confirmed 09/09/17] Tamsulosin CAP* [Flomax CAP*] 0.4 mg PO BEDTIME 09/09/17 [History Confirmed ] PMH/Surg Hx/FS Hx/Imm Hx Endocrine/Hematology History: Reports: Hx Anticoagulant Therapy - Aspirin, Other Endocrine/Hematological Disorders - BENIGN PROSTATE HYPERTROPHY, DISLIPIDEMIA Denies: Hx Bone Marrow Disease, Hx Diabetes, Hx Sickle Cell Disease, Hx Thyroid Disease, Hx Anemia Cardiovascular History: Reports: Hx Congestive Heart Failure, Hx Coronary Artery Disease, Hx Hypercholesterolemia, Hx Hypertension, Other Cardiovascular Problems/Disorders - SICK SINUS SYNDROME, BRADYCARDIA Denies: Hx Deep Vein Thrombosis, Hx Myocardial Infarction, Hx Pacemaker/ICD, Hx Peripheral Vascular Disease, Hx Rheumatic Fever Respiratory History: Reports: Hx Pneumonia Denies: Hx Asthma, Hx Chronic Obstructive Pulmonary Disease (COPD), Hx Lung Cancer, Hx Pulmonary Embolism, Hx Sleep Apnea GI History: Reports: Hx Gastroesophageal Reflux Disease, Hx Hiatal Hernia, Hx Jaundice - A YOUNG MAN, Hx Ulcer - X 1 IN THE PAST, Other GI Disorders - hiatal hernia, acid reflux Denies: Hx Cirrhosis, Hx Gall Bladder Disease, Hx Gastrointestinal Bleed, Hx Irritable Bowel, Hx Urosepsis History: Reports: Hx Kidney Infection - NOT RECENTLY, Other Problems/ Disorders - BILATERAL INGUINAL HERNIA Denies: Hx Dialysis, Hx Kidney Stones - DR. ZAMORANO RULED OUT, Hx Renal Disease Musculoskeletal History: Reports: Hx Back Problems, Hx Bursitis - ARMS, SHOULDERS, Hx Orthopedic Injury, Hx Tendonitis, Other Musculoskeletal History - LOWER BACK SURGERY X 8, CHRONIC PAIN SYNDROME, CARPAL TUNNEL, OSTEOARTHRITI Denies: Hx Arthritis, Hx Rheumatoid Arthritis, Hx Osteoporosis Sensory History: Reports: Hx Cataracts, Hx Contacts or Glasses - READING GLASSES , Hx Hearing Aid - BILATERAL EARS Opthamlomology History: Reports: Hx Cataracts, Hx Contacts or Glasses - READING GLASSES Neurological History: Reports: Hx Dementia, Other Neuro Impairments/Disorders - ALCOHOLISM Denies: Hx Headaches, Hx Migraine, Hx Nerve Disease, Hx Seizures, Hx Transient Ischemic Attacks (TIA) Psychiatric History: Reports: Hx Anxiety, Hx Depression Denies: Hx Panic Disorder, Hx Schizophrenia, Hx Bipolar Disorder - Cancer History Cancer Type, Location and Year: MELANOMA Hx Hematologic Symptoms: No Hx Chemotherapy: No Hx Radiation Therapy: No - Surgical History Surgery Procedure, Year, and Place: Ate age 30 fell off of a telephone pole and landed standing up; three disks. Has had 8 surgeries on his back 45+yrs ago . Very painful; takes at least 12 hydrocodone 10/325 per day routinely to deal. cardiac cath february 2016. with the pain. x4 CABG ONE MONTH AGO. CATARACTS REMOVED FROM BOTH EYES. melanoma face and back dx 1 month ago. SINUS SURGERY X 2. TRIPLE BYPASS DEC 2013 Hx Anesthesia Reactions: No - Immunization History Date of Tetanus Vaccine: UNSURE Date of Influenza Vaccine: NONE Infectious Disease History: No Infectious Disease History: Reports: Hx Shingles - many years ago Denies: Hx Hepatitis - ?, Hx Human Immunodeficiency Virus (HIV), Traveled Outside the [place] in Last 30 Days - Family History Known Family History: Positive: Cardiac Disease, Hypertension - Social History Alcohol Use: None Hx Substance Use: No Substance Use Type: Reports: None Substance Use Comment - Amount & Last Used: PRESCRIBED VICODIN AND MORPHINE Hx Tobacco Use: Yes Smoking Status (MU): Former Smoker Type: Cigarettes Amount Used/How Often: 3 PPD Length of Time of Smoking/Using Tobacco: 35 YEARS Have You Smoked in the Last Year: No Review of Systems Negative: Fever, Chills Negative: Erythema Negative: Sore Throat Positive: Chest Pain Negative: Shortness Of Breath, Cough Negative: Abdominal Pain, Vomiting, Nausea Negative: dysuria, hematuria Negative: Myalgia, Edema Negative: Rash Neurological: Other - POS: dizziness Positive: Headache All Other Systems Reviewed And Are Negative: Yes Physical Exam - Summary Physical Exam Summary: Constitutional: Well-developed, Well-nourished, Alert. (-) Distressed Skin: Warm, Dry HENT: Normocephalic; Atraumatic Eyes: Conjunctiva normal Neck: Musculoskeletal ROM normal neck. (-) JVD, (-) Stridor, (-) Tracheal deviation Cardio: Rhythm regular, rate normal, Heart sounds normal; Intact distal pulses; The pedal pulses are 2+ and symmetric. Radial pulses are 2+ and symmetric. (-) Murmur Pulmonary/Chest wall: Effort normal. (-) Respiratory distress, (-) Wheezes, (-) Rales Abd: Soft, (-) Tenderness, (-) Distension, (-) Guarding, (-) Rebound Musculoskeletal: (-) Edema Lymph: (-) Cervical adenopathy Neuro: Alert, Oriented x3 Psych: Mood and affect Normal Triage Information Reviewed: Yes Vital Signs On Initial Exam: Initial Vitals Temp Pulse Resp BP Pulse Ox 97.2 F 58 20 138/68 96 09/09/17 08:26 09/09/17 08:26 09/09/17 08:26 09/09/17 08:26 09/09/17 08:26 Vital Signs Reviewed: Yes Diagnostics - Vital Signs Vital Signs Temp Pulse Resp BP Pulse Ox 09/09/17 08:26 97.2 F 58 20 138/68 96 - Laboratory Lab Results: Lab Results 09/09/17 09/09/17 09/09/17 Range/Units 09:03 09:03 09:03 WBC 7.2 (3.5-10.8) 10^3/ul RBC 4.47 (4.00-5.40) 10^6/ul Hgb 13.3 L (14.0-18.0) g/dl Hct 40 L (42-52) % MCV 89 (80-94) fL MCH 30 (27-31) pg MCHC 34 (31-36) g/dl RDW 14 (10.5-15) % Plt Count 227 (150-450) 10^3/ul MPV 8.6 (7.4-10.4) um3 Neut % (Auto) 58.5 (38-83) % Lymph % (Auto) 30.7 (25-47) % [place] % (Auto) 7.4 H (0-7) % Eos % (Auto) 2.5 (0-6) % Baso % (Auto) 0.9 (0-2) % Absolute Neuts (auto) 4.2 (1.5-7.7) 10^3/ul Absolute Lymphs (auto) 2.2 (1.0-4.8) 10^3/ul Absolute Monos (auto) 0.5 (0-0.8) 10^3/ul Absolute Eos (auto) 0.2 (0-0.6) 10^3/ul Absolute Basos (auto) 0.1 (0-0.2) 10^3/ul Absolute Nucleated RBC 0 10^3/ul Nucleated RBC % 0 Sodium 136 (135-145) mmol/L Potassium 4.1 (3.5-5.0) mmol/L Chloride 102 (101-111) mmol/L Carbon Dioxide 26 (22-32) mmol/L Anion Gap 8 (2-11) mmol/L BUN 40 H (6-24) mg/dL Creatinine 1.37 H (0.67-1.17) mg/dL Est GFR ( Amer) 59.3 (>60) Est GFR (Non-Af Amer) 49.0 (>60) BUN/Creatinine Ratio 29.2 H (8-20) Glucose 97 (70-100) mg/dL Lactic Acid 0.8 (0.5-2.0) mmol/L Calcium 9.2 (8.6-10.3) mg/dL Total Bilirubin 0.60 (0.2-1.0) mg/dL AST 17 (13-39) U/L ALT 9 (7-52) U/L Alkaline Phosphatase 84 (34-104) U/L Troponin I 0.01 (<0.04) ng/mL Total Protein 6.8 (6.4-8.9) g/dL Albumin 4.0 (3.2-5.2) g/dL Globulin 2.8 (2-4) g/dL Albumin/Globulin Ratio 1.4 (1-3) Result Diagrams: 09/09/17 09:03 09/09/17 09:03 Lab Statement: Any lab studies that have been ordered have been reviewed, and results considered in the medical decision making process. - Radiology Chest XR Xray Interpretation: Positive (See Comments) - IMPRESSION: No active cardiopulmonary disease is noted. Small right pleural effusion is present. Dr. Zhu has reviewed this radiology report. Radiology Interpretation Completed By: Radiologist - EKG 08:24 Cardiac Rate: Bradycardia - at 59 bpm EKG Rhythm: Sinus Bradycardia EKG Interpretation: No STEMI. Re-Evaluation - Re-Evaluation First Eval Re-Evaluation Time: 09:35 Comment: Per nurse, pt has orthostatic vital signs, heart rate is 120 and systolic blood pressure of 109 while standing. Heart rate is 68 and systolic blood pressure is 136 while lying down. Chest Pain Course/Dx - Course Assessment/Plan: Pt is an 86 y/o male who presents with chest pain this morning. Pt reports he had mild chest pain "early this morning." He describes it as pressure and non radiating. Denies pain radiates to arm, back or jaw. Pt states this episode of chest pain lasted for 3-4 minutes. He notes that "something" woke him up this morning unsure if it was his chest pain. Denies cough, SOB, swelling in LE. Pt additionally c/o headache and dizziness. Chest XR shows no active cardiopulmonary disease is noted. Small right pleural effusion is present. EKG is sinus bradycardia at 59 bpm, no STEMI. In the ED course the pt was given aspirin. I discussed pt care with Dr. Higuera, hospitalist, who accepted the pt for admission. - Diagnoses Provider Diagnoses: Chest pain, unspecified - Provider Notifications Discussed Care Of Patient With: Louis Higuera Time Discussed With Above Provider: 09:55 Instructed by Provider To: Other - I discussed pt care with Dr. Higuera, hospitalist, who accepted the pt for admission. Discharge - Sign-Out/Discharge Documenting (check all that apply): Discharge/Admit/Transfer - Admit - Discharge Plan Condition: Stable Disposition: ADMITTED TO [facility] - Billing Disposition and Condition Condition: STABLE Disposition: Admitted to [facility] The documentation as recorded by the Vincenzo ashraf Angela accurately reflects the service I personally performed and the decisions made by , Carlos Alberto Zhu MD.
--- NOTE | 2017-09-10 15:14 | DS ---
DISCHARGE SUMMARY: DATE OF ADMISSION: 09/09/17 DATE OF DISCHARGE: 09/10/17 PRIMARY CARE PROVIDER: [facility], was previously Dr. Mejia. PRIMARY DIAGNOSES: 1. Vertigo. 2. Chest pain. SECONDARY DIAGNOSES: Include: 1. History of systolic heart failure, currently compensated. 2. Dementia. 3. History of bladder outlet obstruction. 4. Coronary artery disease with history of CABG. 5. Hypertension. 6. Left bundle branch block. 7. History of chronic kidney disease. IMAGING DURING THE HOSPITAL STAY: Chest x-ray, impression: No active cardiopulmonary disease. Small right pleural effusion. PERTINENT LABORATORY DATA: Troponin I 0.01 on 2 consecutive checks. HISTORY OF PRESENT ILLNESS AND HOSPITAL COURSE: This is a pleasant 86-year-old gentleman with past medical as outlined in the history of present illness on the day of admission, presented to the hospital reporting feeling lightheaded upon waking. Further evaluation and discussion with ER physician indicated the patient had relayed chest pain that woke him from his sleep; however, he was unable to remember that at the time of my evaluation. His persistent complaints continued to be a sensation of feeling off balance even while sitting in the bed. He had no other associated signs or symptoms other than reported chest pain at the time of his awakening. Exam was notable for cerumen impaction in bilateral ears as well as potentially bullous myringitis on the left; however, difficult to evaluate in the setting of impacted cerumen. The patient was admitted to the hospital. In addition, in the emergency room, the patient was orthostatic with systolic blood pressures dropped from 138 to 107 from lying to standing and a tachycardic response recorded in the computer. The patient received IV fluids as well as was started on Debrox ear drops. The following day, his lightheadedness and disequilibrium were completely resolved. Some of the cerumen impaction had resolved on the left and while no overt infection, he was started on amoxicillin to continue for 5 additional days. He should additionally continue on the Debrox drops. He reported no additional chest pain during the hospital stay. He was monitored on telemetry without events. He will be discharged back to [facility] in stable condition. Additionally, the sensation of vertigo and/or disequilibrium could be secondary to medication effects. The patient did indicate he had medication changes in the last several weeks; however, could not identify which. He is currently on several medications, which could contribute to a sensation of vertigo and/or disequilibrium. MEDICATIONS ON DISCHARGE: Unchanged from admission except for addition of Debrox ear drops as well as amoxicillin 500 mg twice daily. Additional medication changes include decrease of furosemide from 40 mg twice daily to once daily based on orthostatic vital signs on presentation. A full list of discharge medications: 1. Preparation H topically per rectum every 8 hours as needed. 2. Docusate 200 mg daily. 3. Aspirin 81 mg daily. 4. Artificial tears 1 drop in the right eye twice daily as needed. 5. Flomax 0.4 mg at bedtime. 6. Acetaminophen 1000 mg daily as needed. 7. Melatonin 6 mg at bedtime. 8. Cholecalciferol 50,000 units every 2 weeks. 9. Paxil 10 mg at bedtime. 10. Lisinopril 2.5 mg daily. 11. Furosemide 40 mg daily. 12. Seroquel 12.5 mg twice daily. 13. Potassium chloride 20 mEq daily. 14. Morphine sulfate ER 15 mg at bedtime. 15. Cyclobenzaprine 10 mg twice daily as needed. 16. [place] 10/325 four times a day as needed. 17. Debrox 6.5% otic drops 5 drops both ears 3 times a day. 18. Amoxicillin 500 mg twice daily for 5 additional days. At followup, please; 1. Evaluate for continued and/or resolution of symptoms. 2. Evaluate volume status, increase Lasix as necessary. It was decreased on discharge. 3. Evaluate left ear for any further evidence of potential infection. 4. Consider medication simplification if possible. Reasons to return to the hospital including but not limited to recurrent or worsening symptoms including chest pain, shortness of breath, nausea, vomiting, vertigo, lightheadedness, loss of consciousness, bleeding from any source, inability to obtain or tolerate medications were discussed with the patient and his . They both acknowledged understanding. TIME SPENT: Greater than 60 minutes was spent on the discharge of the patient, greater than half was spent [id number] with the patient. [id number]/[facility] #: [id number] CLARISSA
== END 2017-09-10 16:00 ==
LOC: ED 08:22 → MEDTELE 11:43
PROVIDERS: ADMIT Internal Medicine; ATTEND Internal Medicine
DX: R42 Dizziness and giddiness (principal); R07.9 Chest pain, unspecified; I50.22 Chronic systolic (congestive) heart failure; F03.90 Unspecified dementia, unspecified severity, without behavioral disturbance, psychotic disturbance, mood disturbance, and anxiety; R51 Headache; Z79.01 Long term (current) use of anticoagulants; Z87.891 Personal history of nicotine dependence; N32.0 Bladder-neck obstruction; I25.10 Atherosclerotic heart disease of native coronary artery without angina pectoris; Z95.5 Presence of coronary angioplasty implant and graft; I10 Essential (primary) hypertension; I44.7 Left bundle-branch block, unspecified; N18.9 Chronic kidney disease, unspecified; Z79.82 Long term (current) use of aspirin
CPT/HCPCS: 36415; 71045; 80053; 83605; 84484; 85025; 87641; 93005; 99283; A9270-GY; G0378; J2270